=== PATIENT | female | born 1980 | race Caucasian/White ===

== ENCOUNTER 2021-04-28 15:59 | Emergency (ER) | payer OTHER, SELFPAY ==
[2021-04-28 16:03] VITALS: BP 113/71; PULSE 66; RESP 16; TEMP 36.7; O2SAT 100
--- NOTE | 2021-04-28 17:44 | PC.NURSE ---
Patient states she is going to leave. Patient informed she can return to ED if symptoms continue or worsen.
== END 2021-04-28 17:44 | disposition left against medical advice (07) ==
DX: Z53.21 Procedure and treatment not carried out due to patient leaving prior to being seen by health care provider (principal)
CPT/HCPCS: 99199

== ENCOUNTER 2022-04-24 12:33 | Inpatient (IN) | payer OTHER, SELFPAY ==
[2022-04-24] VITALS (28 sets, daily range): BP systolic 66–173; BP diastolic 46–130; PULSE 66–102; RESP 12–20; TEMP 36.6–36.9; O2SAT 100; BMI 30.2
--- NOTE | ~2022-04-24 | US_ITS ---
US OB limited w BPP DATE: 04/24/2022 14:03 INDICATION: Variable heart decelerations in the office. TECHNIQUE: Real-time imaging and Doppler analysis COMPARISON: 12/09/2018 limited obstetrical ultrasound examination FINDINGS: Live lobo intrauterine gestation, fetus in longitudinal lie, vertex presentation. Feta l heart rate of 140 bpm. Anterior placenta. Amniotic fluid index measures 10.1 cm, which is within normal range. BIOPHYSICAL PROFILE reported by production maintenance technician: breathin out of 2 movement: 2 out of 2 tone: 2 out of 2 Amniotic fluid pocket: 2 out of 2 Total score: 8 out of 8 IMPRESSION: Normal biophysical profile score of 8 out of 8 Normal amniotic fluid index of 10.1 cm Reviewed, dictated and finalized at [facility]. Reviewed, dictated and finalized at location [facility].
--- NOTE | 2022-04-24 15:39 | LDADM ---
This patient, Prema Singh, was admitted to Labor/Delivery/Recovery 120 on 04/24/22 at 12:33. Plans for labor, pain management and were discussed with patient. Patient/family oriented to hospital policies and general routines including ID bracelet, bed and alarms, visiting hours, pain management, procedures, bathroom and other care routines, personal items, smoking policy, room service/diet and guest tray routines, security routines, and visiting hours. Patient/Family are encouraged to report perceived risks to care and to ask questions if they do not understand what they are told or what they should do. See OBIX for further documentation.
[2022-04-24] MEDS: LACTATED RINGERS 1,000 ML 125 ML IV CONT ×2 (15:54→17:04)
[2022-04-24 16:05] LABS: Basophils Absolute Auto 0.1 K/mm3 (0.0-0.1); Basophils Percent Auto 0.5 % (0.2-1.2); Eosinophils Absolute Auto 0.2 K/mm3 (0-0.3); Eosinophils Percent Auto 1.4 % (0-4.4); Hematocrit 40.7 % (37.0-47.0); Hemoglobin 13.8 g/dL (12.0-15.0); Immature Granulocyte Percent A 0.8 % (0-0.5); Lymphocytes Absolute Auto 2.71 K/mm3 (0.9-3.2); Mean Corpuscular HGB Conc 33.9 g/dl (32-36); Mean Corpuscular Hemoglobin 32.5 pg (26-34); Mean Platelet Volume 10.3 fl (7.4-10.4); Monocytes Absolute Auto 0.6 K/mm3 (0.1-0.6); Monocytes Percent Auto 4.7 % (2.6-8.5); Neutrophils Absolute Auto 8.7 K/mm3 (1.3-6.7); Neutrophils Percent Auto 70.6 % (45.5-73.1); Platelet Count Result 256 k/mm3 (150-375); Red Blood Count 4.24 M/mm3 (4.2-5.4); Red Cell Distribution Width 13.4 % (11.5-14.5); White Blood Count 12.3 K/mm3 (4.5-10.0)
--- NOTE | 2022-04-24 16:55 | WPDANESEPPF ---
Anes - Initial Pre Proc Eval Procedure: Operation Date: 04/24/22 17:00 Proposed Procedures p Section - Raj Greenberg MD Date/Time: 04/24/22 16:55 Surgeon: aRj Greenberg MD Pre Op Diagnosis: nst Patient Data Age: 42 Gender: F Height: 1.63 m Weight: 80 kg Last Vital Signs Temp 36.9 C 04/24/22 16:32 Pulse 101 H 04/24/22 16:46 BP 126/48 L 04/24/22 16:46 O2 Del Method Room Air 04/24/22 15:35 Allergies Allergy/AdvReac Type Severity Reaction Status Date / Time No Known Allergies Allergy Unknown Unverified 04/24/22 15:51 Home Medications Medication Instructions Recorded Confirmed Type albuterol sulfate 90 mcg/actuation 2 puff inhalation QID PRN Wheezing 04/10/22 04/24/22 History aerosol inhaler aspirin 81 mg tablet 81 mg PO DAILY 04/10/22 04/24/22 History prenat.vits,carlos,ksi-vpdh-hdpjp 1 tablet PO HS 04/10/22 04/24/22 History Laboratory Tests 04/24/22 04/24/22 04/24/22 15:59 15:59 15:59 WBC 12.3 K/mm3 H K/mm3 (4.5-10.0) RBC 4.24 M/mm3 M/mm3 (4.2-5.4) Hgb 13.8 g/dL g/dL (12.0-15.0) Hct 40.7 % % (37.0-47.0) MCV 96.0 fl fl (80-100) MCH 32.5 pg pg (26-34) MCHC 33.9 g/dl g/dl (32-36) RDW 13.4 % % (11.5-14.5) Plt Count 256 k/mm3 k/mm3 (150-375) MPV 10.3 fl fl (7.4-10.4) Immature Gran % (Auto) 0.8 % H % (0-0.5) Neut % (Auto) 70.6 % % (45.5-73.1) Lymph % (Auto) 22.0 % % (18.3-44.2) Gates % (Auto) 4.7 % % (2.6-8.5) Eos % (Auto) 1.4 % % (0-4.4) Baso % (Auto) 0.5 % % (0.2-1.2) Lymph # (Auto) 2.71 K/mm3 K/mm3 (0.9-3.2) Gates # (Auto) 0.6 K/mm3 K/mm3 (0.1-0.6) Eos # (Auto) 0.2 K/mm3 K/mm3 (0-0.3) Baso # (Auto) 0.1 K/mm3 K/mm3 (0.0-0.1) Abs Immat Gran (auto) 0.10 K/mm3 H K/mm3 (0.00-0.031) Absolute Neuts (auto) 8.7 K/mm3 H K/mm3 (1.3-6.7) Absolute Nucleated RBC 0.0 K/mm3 K/mm3 (0.0-0.012) Nucleated RBC % 0.0 % % (0.0-0.2) RPR Pending Blood Type A Positive Antibody Screen Pending Patient hx anesthesia problems: none Family hx anesthesia problems: none Results Review: All pre-operative results and documents have been reviewed as part of the pre-operative evaluation. [facility] Family History Family History Father Family history of malignant neoplasm Mother Family history of chronic obstructive pulmonary disease Hypertension Sibling Diabetes mellitus Family history of diabetes mellitus in first degree relative Hypertension Other Asthma Social History Social History (Updated 04/24/22 @ 15:42 by Joyce Gaitan RN) Smoking status: Former smoker Tobacco type: cigarettes Second hand tobacco smoke exposure: Yes Alcohol intake: former Substance use: never Spiritual care concerns: No Anes - Eval Final PreProcedure Day of Procedure 04/24/22 16:55 Patient weight: obese Heart: regular rate and rhythm Lungs: clear to auscultation and normal air movement Airway: Mallampati scale class II Neurological: alert and oriented Last oral intake: >/= 8 hours ASA classification: III Emergent: no Anesthetic plan: proceed Anesthesia type and monitoring: regional spinal and standard monitoring Results Review: All pre-operative results and documents have been reviewed as part of the pre-operative evaluation. Informed Consent: The patient's anesthetic plan and its attendant risks and benefits were discussed with the patient/family/POA. Questions were solicited and answers provided to the satisfaction of the patient/family/POA.
--- NOTE | 2022-04-24 17:03 | WPDHPUPDATE1 ---
History and Physical Update Update Date/Time: 04/24/22 17:03 History and Physical has been reviewed, including an updated exam of the patient. There are NO changes in the patient's condition. Risks, benefits, and alternatives have been discussed and questions answered. Patient agrees to proceed with procedure.
--- NOTE | 2022-04-24 17:04 | PM.IMHP ---
H&P: [facility] History of Present Illness Date/Time: 04/24/22 17:04 Chief Complaint: Nonreassuring heart tones Narrative: this patient is a 42-year-old multiparous female at 38 weeks gestation with nonreassuring heart tones and a previous delivery. Patient had repetitive depart rate decelerations on monitoring in the office. It is Unsafe to send her home. we agreed perform repeat delivery today. She understands that injuries may occur that result in hospitalization, more surgery, and severe illness. She understands there is risk of hemorrhage infection. she denies any chest pain shortness of breath. She denies any contractions, vaginal bleeding, loss of fluid. Denies any nausea, vomiting, fever, chills. Review of Systems Review of Systems: All systems reviewed & are unremarkable except as noted in HPI and below Constitutional: Constitutional: Denies chills, Denies fatigue, Denies fever(s) and Denies weakness Eyes: Eyes: Denies blurry vision, Denies change in vision, Denies loss of peripheral vision, Denies loss of vision, Denies other visual disturbances and Denies eye pain ENT: Denies vertigo, Denies dizziness, Denies hearing loss, Denies mouth pain, Denies nasal obstruction, Denies neck mass and Denies neck pain Cardiovascular: Cardiovascular: Denies chest pain, Denies diaphoresis, Denies syncope, Denies leg edema and Denies dyspnea Respiratory: Respiratory: Denies chest congestion, Denies cough, Denies hemoptysis, Denies dyspnea and Denies wheezing Gastrointestinal: Gastrointestinal: Denies abdominal pain, Denies constipation, Denies diarrhea, Denies nausea and Denies vomiting Genitourinary: Genitourinary: Denies hematuria, Denies change in libido, Denies nocturia, Denies genital lesions, Denies flank pain and Denies urinary urgency Musculoskeletal: Musculoskeletal: Denies abnormal gait, Denies back pain, Denies myalgias, Denies arthralgias, Denies joint swelling, Denies muscle weakness and Denies neck pain Integumentary/Breasts: Skin/Breast: Denies swelling, Denies breast pain, Denies breast mass, Denies dry skin, Denies nipple discharge, Denies unusual bruising and Denies jaundice Neurologic: Denies Neuro-related abnormal movements, Denies Abnormal speech present, Denies abnormal gait, Denies behavioral changes, Denies confusion, Denies vertigo, Denies dizziness, Denies syncope, Denies loss of vision, Denies memory loss, Denies convulsions and Denies weakness Psychiatric: Psychiatric: Denies abnormal sleep pattern, Denies behavioral changes, Denies change in libido, Denies confusion, Denies depression, Denies anhedonia and Denies memory loss Endocrine: Endocrine: Reports no additional endocrine complaints, Denies change in libido and Denies fatigue Hematologic/Lymphatic: Hematologic/Lymphatic: Reports no additional hematologic/lymphatic complaints Allergic/Immunologic: Allergic/Immunologic: Reports no additional allergic/immunologic complaints and Denies wheezing [facility] Family History Family History Father Family history of malignant neoplasm Mother Family history of chronic obstructive pulmonary disease Hypertension Sibling Diabetes mellitus Family history of diabetes mellitus in first degree relative Hypertension Other Asthma Social History Social History (Updated 04/24/22 @ 15:42 by Joyce Gaitan, RN) Smoking status: Former smoker Tobacco type: cigarettes Second hand tobacco smoke exposure: Yes Alcohol intake: former Substance use: never Spiritual care concerns: No Meds Home Medications and Allergies Home Medications Medication Instructions Recorded Confirmed Type albuterol sulfate 90 mcg/actuation 2 puff inhalation QID PRN Wheezing 04/10/22 04/24/22 History aerosol inhaler aspirin 81 mg tablet 81 mg PO DAILY 04/10/22 04/24/22 History prenat.vits,carlos,lrm-lrin-xbmiy 1 tablet PO HS 04/10/22 04/24/22 Hist
[2022-04-24] MEDS: ceFAZolin 2 GM/D5W 50 ML 2 GM/50 ML BAG IVPB (17:26)
--- NOTE | 2022-04-24 18:30 | P.OP_ITS ---
Procedure Note - Detailed Date of Procedure 04/24/22 Pre-op Diagnosis nonreassuring heart tones, previous Post-op Diagnosis Same Procedure Performed Low-transverse section Surgeon Raj Greenberg MD Anesthesia Spinal Indications nonreassuring heart tones, previous Findings Normal gestational maternal anatomy, average size , normal Apgars. Description of Procedure The patient was taken the operating room. She was prepped and draped in dorsal supine position with a leftward tilt. This was done after spinal anesthetic was applied. A low-transverse skin incision was made and carried down till of the fascia with the knife. The fascial incision was made with the knife. The fascial incision was extended laterally with Park scissors. The fascia was tented upward superiorly and inferiorly the rectus muscles were dissected off bluntly. The rectus muscles were the midline. The preperitoneal fat and peritoneum were dissected open bluntly at the superior aspect of the rectus muscles. The peritoneal incision was extended superior and inferior with good position of bladder. The uterine incision was made with a scalpel down to the level of the amniotic cavity. The amniotic cavity was entered bluntly. The was delivered. The cord was clamped and cut and the was handed off to waiting pediatric staff. Cord bloods were ob tained. The placenta was removed manually. The uterus was exteriorized. The uterus was cleared of all clots, debris and membranes. The uterus was closed in 0 Vicryl running lock fashion. An imbricating over a was placed along the incision line as well. The uterus was returned to the abdomen. The gutters were cleared of all clots and debris. The fascia was closed with 0 Vicryl running fashion. The subcutaneous tissue was irrigated pinpoint bleeders were cauterized. The skin was closed with subcuticular absorbable good. The skin incision line was covered with glue. The patient tolerated the procedure well. She has taken recovery room in stable condition. Sponge lap and needle counts were correct x2. Estimated Blood Loss 500 Pathology Yes Complications No immediate complications Condition Stable Disposition PACU
--- NOTE | 2022-04-24 18:42 | PC.NURSE ---
report given to MATY Anderson.
[2022-04-24] MEDS: OXYTOCIN 30 UNITS/NS 500 ML 30 UNITS/500 ML BAG 125 UNITS IV CONT (19:27)
[2022-04-24] MEDS: ONDANSETRON INJ 4 MG/2 ML VIAL IV PUSH (23:16)
[2022-04-24] MEDS: DEXTROSE 5%/0.45% SOD CHL 1,000 ML 125 ML IV CONT (23:19)
[2022-04-25 04:20] VITALS: BP 108/59; PULSE 68; RESP 18; TEMP 36.5; O2SAT 99
[2022-04-25 05:45] LABS: Basophils Absolute Auto 0.1 K/mm3 (0.0-0.1); Basophils Percent Auto 0.4 % (0.2-1.2); Eosinophils Absolute Auto 0.1 K/mm3 (0-0.3); Eosinophils Percent Auto 0.6 % (0-4.4); Hematocrit 32.6 % (37.0-47.0); Hemoglobin 11.1 g/dL (12.0-15.0); Immature Granulocyte Absolute 0.11 K/mm3 (0.00-0.031); Immature Granulocyte Percent A 0.8 % (0-0.5); Lymphocytes Absolute Auto 2.04 K/mm3 (0.9-3.2); Lymphocytes Percent Auto 14.6 % (18.3-44.2); Mean Corpuscular Hemoglobin 32.6 pg (26-34); Mean Corpuscular Volume 95.9 fl (80-100); Mean Platelet Volume 10.1 fl (7.4-10.4); Monocytes Absolute Auto 0.8 K/mm3 (0.1-0.6); Neutrophils Absolute Auto 10.8 K/mm3 (1.3-6.7); Neutrophils Percent Auto 77.6 % (45.5-73.1); Platelet Count Result 250 k/mm3 (150-375); Red Cell Distribution Width 13.2 % (11.5-14.5); White Blood Count 13.9 K/mm3 (4.5-10.0)
[2022-04-25] MEDS: IBUPROFEN 600 MG TABLET PO ×3 (06:14→23:41)
[2022-04-25 06:24] LABS: Rapid Plasma Reagin Non-Reactive (NonReactive)
[2022-04-25 07:40] VITALS: BP 108/47; PULSE 63; RESP 16; TEMP 36.7; O2SAT 100
--- NOTE | 2022-04-25 08:27 | PM.OBPNVD ---
OB - PN: Subj Subjective Date/time seen: 04/25/22 08:27 Patient comments: no complaints, pain well controlled, tolerating diet and flatus present OB - PN: Obj Data Labs CBC & Chem 7: 04/25/22 04:04 Labs: Laboratory Results - last 24 hr 04/24/22 04/24/22 04/24/22 15:59 15:59 15:59 WBC 12.3 H RBC 4.24 Hgb 13.8 Hct 40.7 MCV 96.0 MCH 32.5 MCHC 33.9 RDW 13.4 Plt Count 256 MPV 10.3 Immature Gran % (Auto) 0.8 H Neut % (Auto) 70.6 Lymph % (Auto) 22.0 [place] % (Auto) 4.7 Eos % (Auto) 1.4 Baso % (Auto) 0.5 Lymph # (Auto) 2.71 [place] # (Auto) 0.6 Eos # (Auto) 0.2 Baso # (Auto) 0.1 Abs Immat Gran (auto) 0.10 H Absolute Neuts (auto) 8.7 H Absolute Nucleated RBC 0.0 Nucleated RBC % 0.0 RPR Non-reactive Blood Type A Positive Antibody Screen Negative 04/25/22 04:04 WBC 13.9 H RBC 3.40 L Hgb 11.1 L Hct 32.6 L MCV 95.9 MCH 32.6 MCHC 34.0 RDW 13.2 Plt Count 250 MPV 10.1 Immature Gran % (Auto) 0.8 H Neut % (Auto) 77.6 H Lymph % (Auto) 14.6 L [place] % (Auto) 6.0 Eos % (Auto) 0.6 Baso % (Auto) 0.4 Lymph # (Auto) 2.04 [place] # (Auto) 0.8 H Eos # (Auto) 0.1 Baso # (Auto) 0.1 Abs Immat Gran (auto) 0.11 H Absolute Neuts (auto) 10.8 H Absolute Nucleated RBC 0.0 Nucleated RBC % 0.0 RPR Blood Type Antibody Screen Imaging Radiologist's impression: Impressions Obstetrics US/Biophysical Profile 04/24/22 14:04 IMPRESSION: Normal biophysical profile score of 8 out of 8 Normal amniotic fluid index of 10.1 cm OB - PN A/P Plan day: 1 Comments: Post Op LTCS - no problems, routine recovery Time Spent With Patient Time: Total time spent is greater than 50% in coordination of care (as documented) at patient's floor/unit and/or counseling patient: Exam Const: General: cooperative, healthy appearing, comfortable and no acute distress Resp: Auscultation: no crackles, no rales, no rhonchi and no wheezes Cardio: Rhythm: regular rhythm Heart sounds: no click and no murmurs GI: Inspection: non-distended Auscultation: normal bowel sounds Extrem: General: normal to inspection, no pedal edema and no calf tenderness
[2022-04-25] MEDS: MULTIVIT/MIN/PREN/FOL AC/IRON TABLET 1 TAB PO (09:49)
[2022-04-25] MEDS: DOCUSATE SODIUM 100 MG CAPSULE PO ×2 (09:49→17:11)
--- NOTE | 2022-04-25 11:37 | WPDANLDPN2 ---
Anes-Prog Note L&D Date/Time: 04/25/22 11:37 Comfortable throughout: section Neuraxial method: spinal Epidural/Spinal procedure site: clean & non-tender Neuro status: Neuro function grossly intact. Cardiovascular status: normal Respiratory status: normal Airway patency: baseline Mental status: baseline Post-Op hydration status: normal Vital Signs: Last Vital Signs Temp 36.7 C 04/25/22 07:40 Pulse 63 04/25/22 07:40 Resp 16 04/25/22 07:40 BP 108/47 L 04/25/22 07:40 Pulse Ox 100 04/25/22 07:40 O2 Del Method Room Air 04/25/22 04:20 Pain score (VAS): 3 I/O: Intake & Output 04/24/22 04/25/22 04/25/22 23:59 07:59 15:59 Intake Total 1000 700 Output Total 1150 Balance 1000 -450 Post-procedural complaints: none Patient feedback: Patient satisfied with anesthetic care.
--- NOTE | 2022-04-25 11:38 | WPDANLDNPN2 ---
Anes-Prog Note L&D-Neuraxial Date/Time: 04/25/22 11:38 Neuraxial medications: intrathecal PF morphine Opiod-related complaints: pruritis mild, no treatment Patient feedback: Patient satisfied with post-operative pain management. Comments: Patient stated mild nausea last night, but was effectively treated with medication
[2022-04-25 12:10] VITALS: BP 105/47; PULSE 67; RESP 16; TEMP 36.6; O2SAT 99
--- NOTE | 2022-04-25 12:40 | PC.NURSE ---
[id number] Introductions were made, then consulted with patient to assess needs related to . Mother led the conversation with her?plans to feed?her infant and the?experience so far. Resources provided for inpatient and outpatient services using a resource guide and mom/baby guide. (Infant is in the nursery) Mother voiced understanding of information and will call if there is a request for assistance. Reported to primary RN.
[2022-04-25] MEDS: HYDROcodone/acetaminophen (*CRX) 5-325 MG TABLET 1 TAB PO ×2 (17:11→23:41)
[2022-04-25 17:14] VITALS: BP 96/43; PULSE 70; RESP 18; TEMP 36.4; O2SAT 100
[2022-04-25] MEDS: SIMETHICONE 80 MG TAB.CHEW PO ×2 (17:20→23:41)
[2022-04-25 20:00] VITALS: BP 98/55; PULSE 70; RESP 18; TEMP 36.6; O2SAT 99
[2022-04-26] MEDS: HYDROcodone/acetaminophen (*CRX) 5-325 MG TABLET 1 TAB PO ×3 (04:59→15:25)
[2022-04-26] MEDS: SIMETHICONE 80 MG TAB.CHEW PO ×2 (04:59→09:02)
--- NOTE | 2022-04-26 08:30 | PM.OBPNVD ---
OB - PN: Subj Subjective Date/time seen: 04/26/22 08:30 Patient comments: no complaints, pain well controlled, incisional pain, tolerating diet and flatus present OB - PN: Obj Data Labs CBC & Chem 7: 04/25/22 04:04 OB - PN A/P Plan day: 2 Plan: routine care Comments: POD#2 LTCS - no problems, Time Spent With Patient Time: Total time spent is greater than 50% in coordination of care (as documented) at patient's floor/unit and/or counseling patient: Exam Const: General: comfortable, no acute distress and alert Resp: Effort & Inspection: normal respiratory effort Auscultation: no crackles, no rales and no rhonchi Cardio: Rate: regular rate Heart sounds: no click, no murmurs and no rubs GI: Inspection: non-distended GI Palp: No Tenderness to palpation present (GI) Auscultation: normal bowel sounds Other: Incision - CDI Extrem: General: normal to inspection, no pedal edema and no calf tenderness
--- NOTE | 2022-04-26 08:30 | PM.OBDSVD ---
DS: Admitting Diagnosis Discharge Date 04/26/22 Admitting Diagnosis term pregnacy OB - DS: Summary OB Procedures : None OB Procedures Intrapartum: OB Procedures: : None Peripartum Data Procedures: Procedures Operation Date: 04/24/22 17:00 Actual Procedure Side Surgeon p Section Raj Greenberg MD Time Spent with Patient Time attestation: Total time spent providing and/or coordinating discharge services: DS: Data Data Completed and Pending Pending studies at discharge: Pending at discharge 04/24/22 18:06 Surgical [PTH] Routine Discharge Plan Discharge Discharging Clinician: Raj Greenberg Patient Disposition: Home, Self-Care Activity: pelvic rest Diet: regular Patient Instructions: Antibiotic Form Stand Alone Forms: General Discharge Information Follow-up/Referrals: Raj Greenberg MD [Physician] - Discharge Medications: New hydrocodone-acetaminophen 5-325 mg tablet 1 tablet PO Q4H PRN (Reason: pain) Qty: 25 0RF Continued Adult Low Dose Aspirin 81 mg Tablet 81 mg PO DAILY #2 Tablet 1 tablet PO HS albuterol sulfate 90 mcg/actuation Hfa Aerosol Inhaler 2 puff INHALATION QID PRN (Reason: Wheezing) Date of admission: 04/24/22 12:33 Primary Care Provider: PHYSICIAN NOT ON STAFF,NONSTAFF Admitting Provider: Raj Greenberg Attending physician on admission: Raj Greenberg Condition: Stable
[2022-04-26] MEDS: IBUPROFEN 600 MG TABLET PO ×2 (08:54→15:24)
[2022-04-26] MEDS: TETANUS,DIPHTHERIA,AC PERTUSSIS ADULT (0.5 ML) BOOSTRIX IM (09:01)
[2022-04-26] MEDS: MULTIVIT/MIN/PREN/FOL AC/IRON TABLET 1 TAB PO (09:02)
[2022-04-26] MEDS: DOCUSATE SODIUM 100 MG CAPSULE PO (09:02)
[2022-04-26 09:25] VITALS: BP 107/49; PULSE 72; RESP 16; TEMP 36.1; O2SAT 99
[2022-04-28 09:21] VITALS: BP 118/56; PULSE 70; RESP 20; TEMP 36.8; O2SAT 99
== END 2022-04-26 15:55 | disposition home or self-care (01) | DRG 785 ==
LOC: ANHOBOP 15:11 → ANHLDR 15:12 → ANHOB2 21:13
PROVIDERS: Admitting Provider Obstetrics & Gynecology; Visit Provider Obstetrics & Gynecology
PROC: 10D00Z1 Extraction of Products of Conception, Low, Open Approach (ICD-10-PCS; CPT 59514; principal; 2022-04-24 17:00)
DX: O34.219 Maternal care for unspecified type scar from previous cesarean delivery (principal); O76 Abnormality in fetal heart rate and rhythm complicating labor and delivery; Z3A.38 38 weeks gestation of pregnancy; Z37.0 Single live birth; Z30.2 Encounter for sterilization; Z79.82 Long term (current) use of aspirin; Z87.891 Personal history of nicotine dependence; Z23 Encounter for immunization
CPT/HCPCS: 36415; 76815; 76819; 85025; 86592; 86850; 86900; 86901; 88302; 90471; 90686; 90715; A9270; G0008; J0131; J0690; J2274; J2405; J2590; J7120

== ENCOUNTER 2024-11-29 08:40 | Outpatient (CLI) | payer SELFPAY ==
--- NOTE | ~2024-11-29 | MM_ITS ---
EXAMINATION: MM screening nate BI w juno HISTORY: Screening mammogram TECHNIQUE: Craniocaudal and mediolateral oblique 3-D tomosynthesis images were obtained and synthetic 2-D images were generated. CAD analysis was submitted and interpreted. COMPARISON: No prior mammogram is available for comparison at this institution. BREAST PARENCHYMAL COMPOSITION:Dense: The breasts are heterogeneously dense, which may obscure small masses. FINDINGS: No suspicious mass, calcification, or architectural distortion are identified in either john ast to suggest malignancy. There has been no suspicious interval change. IMPRESSION: No mammographic evidence of malignancy. Recommend routine screening mammography in one year. BI-RADS Category 1: Negative Reviewed, dictated and finalized at location .
--- OUTSIDE RECORDS SUMMARY | 2024-11-29 09:03 | XMS_ITS | Clinical Summary ---
Author Organization [facility] [employer] Address [address] [place] [address] Care Team Providers Care Sanitation Inspector Name Role Phone Unavailable Primary Care Provider Unavailabl e Source Comments [facility] [employer],non-owned Affiliates and Associated Physician Practices is amultiple site organization consisting of ambulatory clinics and hospital sitesin [place], [place], [place] and [place]. This disclosure is being madepursuant to the Care Everywhere program and may not contain all information available regarding this patient. Last updated 18.[employer] [facility] Allergies No known active allergies Medications * Be aware that medications may not be up to date on this document. Alwaysverify current medications with the patient. ClonazePAM (KLONOPIN PO) Active albuterol HFA (PROVENTIL;VENTOL IN;PROAIR) 108 (90 BASE) MCG/ACT inhalerIndication s:Mild intermittent asthma without complication (HCC) Inhale 2 puffs by mouth every 4 hours as needed 1 Inhaler 07/29/2018 Active Vit-Fe Fumarate-FA ( VITAMIN) 27-0.8 MG tablet Take 1 tablet by mouth once daily Active Family History Medical History Relation Name Comments Diabetes - Type 2 Brother Cancer - Other Father throat COPD - Chronic Obstructive Pulmonary Disease Mother Diabetes - Type 1 Paternal Grandmother Asthma Neg Hx Autoimmune Disease Neg Hx Bipolar Disorder Neg Hx Cancer - Breast Neg Hx Cancer - Colon Neg Hx Cancer - Ovarian Neg Hx Cancer - Pancreatic Neg Hx Cancer - Prostate Neg Hx Depression Neg Hx Eczema Neg Hx Hypertension Neg Hx Migraine Neg Hx Osteoporosis Neg Hx Seizures Neg Hx Sudd. <30 Neg Hx Thyroid Disease Neg Hx Ulcerative Colitis Neg Hx Relation Name Status Comments Brother Alive Father Alive Mother Alive Paternal Grandmother Social History Tobacco Use Types Packs/Day Years Used Date Smoking Tobacco: Former Cigarettes 1 24 1 08/05/1993 - 06/05/2018 Smokeless Tobacco: Never Tobacco Cessation:Counseling Given: No Alcohol Use Standard Drinks/Week Comments No 0 (1 standard drink = 0.6 oz pur e alcohol) Estimated Date of Delivery Comme nts Yes 06/05/2019 Sex and Gender Information Value Date Recorded Sex Assigned at Not on file Legal Sex Female 9:57 AM [employer] Gender Identity Not on file Sexual Orientation Not on file Last Filed Vital Signs Vital Sign Reading Time Taken Comments Blood Pressure 124/80 10/12/2018 12:10 PM CDT Pulse 64 10/12/2018 12:10 PM CDT Temperature 37 C (98.6 F) 10/12/2018 12:10 PM CDT Respiratory Rate 16 10/12/2018 12:10 PM CDT Oxygen Saturation 98% 10/12/2018 12:10 PM CDT Inhaled Oxygen Concentration - - Weight 68 kg (150 lb) 10/12/2018 12:10 PM CDT Height 162.6 cm (5' 4 ) 10/12/2018 12:10 PM CDT Body Mass Index 25.75 10/12/2018 12:10 PM CDT Plan of Treatment Health Maintenance Due Date Last Done Comments COLOGUARD (AGES 45-75) - COL ON CA SCREENING 1979 COLON MONITORING 1979 COLONOSCOPY - COLON CA SCREENING 1979 CT COLONOGRAPHY - COLON CA SCREENING 1979 Colorectal Cancer Screening 1979 FIT - COLON CA SCREENING 1979 FLEX SIG - COLON CA SCREENING 1979 LIPID TESTING 1979 MAMMOGRAM 1979 HIV SCREENING 1994 HEPATITIS C SCREENING 04/05/1997 DTAP/TDAP/TD VACCINES (1 - Tdap) 1998 HEPATITIS B VACCINE (1 of 3 - 19+ 3-dose series) 1998 COVID-19 VACCINE ( - 2023-2 5 season) 2024 DEPRESSION SCREENING 08/03/2024 INFLUENZA VACCINE (Season Ended) 2025 ZOSTER VACCINE (1 of 2) 2029 Respiratory Syncytial Virus (RSV) Vaccine Pt: or over 60 yrs (1 - 1-dose 75+ series) 2054 HIB VACCINE Aged Out No longer eligi ble based on patient's age to complete this topic HPV VACCINE Aged Out No longer eligi ble based on patient's age to complete this topic MENINGOCOCCAL (Group B) VACC INE SHARED DECISION-MAKING Aged Out No longer eligibl e based on patient's age to complete this topic MENINGOCOCCAL GROUPS A/C/Y/W VACCINE Aged Out No longer eligible b ased on patient's age to complete this topic PNEUMOCOCCAL VACCINE Aged Out No long er eligible based on patient's age to complete this topic Insurance
--- OUTSIDE RECORDS SUMMARY | 2024-11-29 09:04 | XMS_ITS | Clinical Summary ---
Author Organization [facility] Address [facility] [place] [address] Care Team Providers Care Tower Supervisor Name Role Phone Unavailable Primary Care Provider Unavailabl e Allergies No known active allergies Medications montelukast (SINGULAIR) 10 MG tabletIndicatio ns:Allergic sinusitis Take 1 tablet (10 mg total) by mouth nightly at bedtime. 30 tablet 2 4 Active busPIRone (BUSPAR) 10 MG tabletIndicatio ns:Generalized anxiety disorder,Premen strual dysphoric disorder Take 1 tablet (10 mg total) by mouth 2 (two) times daily. Take 1/2 tablet twice daily initially 1 week prior to menses and during menses 60 tablet 1 4 Active escitalopram (LEXAPRO) 20 MG tabletIndicatio ns:Generalized anxiety disorder Take 1 tablet (20 mg total) by mouth daily. 90 tablet 1 4 Active buPROPion XL (WELLBUTRIN XL) 150 MG 24 hr tabletIndicatio ns:Mood changes Take 1 tablet (150 mg total) by mouth daily. 30 tablet 4 Active hydrOXYzine (ATARAX) 25 MG tabletIndicatio ns:Anxiety with flying Take 1 tablet every 8 hours PRN anxiety. 20 tablet 5 Active Active Problems Problem Noted Date Diagnosed Date Palpitations 08/24/2023 Assessment & Plan (08/24/2023 8:30 AM ORTHOTIC FINISH GRINDING TECHNICIAN): EKG shows no significant arrhythmias. Holter monitor does not show any significant arrhythmias. Would not start any pharmacologic therapy at this time. Raynaud's disease without gangrene 08/24/2023 Assessment & Plan (08/24/2023 8:31 AM ORTHOTIC FINISH GRINDING TECHNICIAN): She was started on verapamil by her primary care physician. I told her that she could try this or try conservative therapies such as gloves or right hand warm a to help with warming her hands and colder weather. History of tobacco abuse 08/24/2023 Assessment & Plan (08/24/2023 8:32 AM ORTHOTIC FINISH GRINDING TECHNICIAN): She is a former smoker. I discussed coronary calcium scoring for risk stratification. 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 Family & Internal Medicine [id number] [place] [address] Cam Pate MD Appointment Request 09/09/2024 MDCapsule Message [facility] Internal Medicine [address] [id number] Mylene Dumont PA-C Vacation/flying anxiety from Last 3 Months Immunizations Immunization Administration Dates Next Due Fluzone 6 Months+ Quad (0.5 mL Prefilled Syringe) 06/10/2023 Influenza (Generic) 05/03/2017 Influenza Adult (Generic) 04/26/2022,,05/15/2020,2018,04/26/2018,04/06/2017 Tdap (Generic) 04/26/2022,04/27/2019 Family History Medical History Relation Comments Diabetes Brother type 1; dx 20s Cancer Father skin Diverticulitis Father Stroke Father Throat cancer Father Cancer Mother cervical Prostate Cancer Paternal Grandfather type 1 diabetes Paternal Grandmother Diabetes Sister type 2; dx om 42 s Relation Status Comments Brother Father Alive Mother Alive Paternal Grandfather Paternal Grandmother Sister Social History Tobacco Use Types Packs/Day Years Used Date Smoking Tobacco: Former Cigarettes 1 20 1 2017 Smokeless Tobacco: Never Tobacco Cessation:Counseling Given: No Alcohol Use Standard Drinks/Week Comments Yes 16.7 (1 standard drink = 0.6 oz pure alcohol) PHQ-2 Answer Date Recorded Patient Health Questionnaire-2 Score 0 03/28/2024 Comments No Sex and Gender Information Value Date Recorded Sex Assigned at Not on file Legal Sex Female 6:32 PM CDT Gender Identity Not on file Sexual Orientation Not on file Last Filed Vital Signs Vital Sign Reading Time Taken Comments Blood Pressure 117/67 03/28/2024 9:44 AM CDT Pulse 60 03/28/2024 9:44 AM CDT Temperature 36.4 C (97.6 F) 03/28/2024 9:44 AM CDT Respiratory Rate 18 03/28/2024 9:44 AM CDT Oxygen Saturation 100% 03/28/2024 9:44 AM CDT Inhaled Oxygen Concentration - - Weight 71.7 kg (158 lb 1.6 oz) 03/28/2024 9:44 A M CDT Height 162.6 cm (5' 4 ) 03/28/2024 9:44 AM CDT Body Mass Index 27.14 03/28/2024 9:44 AM CDT Plan of Treatment Health Maintenance Due Date Last Done Comments Colorectal Cancer Screening Colonoscopy (10 Years) 1979 Hepatitis B Vaccines (1 of 3 - 19+ 3-dose series) 1998 Pneumococcal Vaccine: Pediatrics (0 to 5 Years) and At-Risk Patients (6 to 49 Years) (1 of 2 - PCV) 1998 Cervical Cancer Screening Pa p with HPV Testing (Age 30 to 64) Every 5 Years 2009 Mammogram Screening 2019 Annual Physical 10/11/2023 10/10/2022 COVID-19 Vaccine (3 - 2023-2 5 season) 2024 01/09/2021, 12/19/2020 PHQ-2 (Physician [place]) 08/03/2024 03/28/2024 Cervical Cancer Screening Pa p Smear (Age 30 to 64) Every 3 Years 06/02/2026 06/02/2023 Cervical Cancer Screening wi th HPV 06/02/2026 DTaP, Tdap and Td Vaccines ( 3 - Td or Tdap) 04/26/2032 04/26/2022, 04/27/2019 Hepatitis C Completed 10/02/2021 HPV Vaccines Aged Out No longer eligi ble based on patient's age to complete this topic Meningococcal B Vaccine Aged Out No l onger eligible based on patient's age to complete this topic Meningococcal Vaccine Aged Out No carol[place] myke eligible based on patient's age to complete this topic RSV Immunizations Under 20 Months Aged Out No longer eligible b ased on patient's age to complete this topic Insurance [facility]
--- OUTSIDE RECORDS SUMMARY | 2024-11-29 09:04 | XMS_ITS | Data Portability ---
Author Organization [facility] [place] Address [address] [place] [address] Care Team Providers Care Audiovisual Technician Name Role Phone FELICE LANA Primary Care Provider [phone] Assessment Encounter Date Assessment Date Assessment LastModified by Organization Details LastModified Time 09/24/2022 09/24/2022 increase to 20 mg, if any suicidal thoughts to ED [email or web address] Not available 09/24/2022 11:36:08 06/02/2023 06/02/2023 Annual gynecological exam performed. Patient will come back in a year unless there are new symptoms. Not available 06/02/2023 09:29:41 06/17/2024 06/17/2024 Annual gynecological exam performed. Patient will come back in a year unless there are new symptoms. [email or web address] Not available 06/17/2024 11:20:20 Plan of Treatment Reminders Order Date Submit Date Provider Last Modified By Organization Details Last Modified Time Details Appointments None recorded. Lab CBC w/ auto diff 2021 [facility] (Lab), [address] [place], [address], 16:17:51 CMP, serum or plasma 2021 [facility] (Lab), [address] [place], [address], 16:17:51 TSH, serum or plasma 2021 022 [facility] (Lab), [address] , [place], [address], 17:21:33 vitamin D, 25-hydroxy, total, serum 2021 [facility] (Lab), [address], [place], [address], 16:17:56 dhea-sulfat e, serum 2021 [facility] (Lab), [address], [place], [address], 16:17:52 estradiol, serum 2021 [facility] (Lab), [address], [place], [address], 16:17:54 FSH (follicle-s timulating hormone), serum 2021 [facility] (Lab), [address], [place], [address], 16:17:56 HbA1c (hemoglobin A1c), blood 2021 [facility] (Lab), [address] , [place], [address], 16:17:53 lh (luteinizin g hormone), serum 2021 [facility] (Lab), [address] , [place], [address], 16:17:55 progesteron e, serum 2021 [facility] (Lab), [address], [place], [address], 16:17:54 prolactin, serum 2021 [facility] (Lab), [address] [facility], [place], [address], 16:17:55 shbg (sex hormone-bin ding globulin), serum 2021 [facility] (Lab), [address] [facility], [place], [address], 16:17:53 TSH, serum or plasma 2021 [facility] (Lab), [address] [facility], [place], [address], 16:17:52 testosteron e free/testos terone total, ratio, serum 2021 [facility] (Lab), [address] [facility], [place], [address], 16:17:57 Referral None recorded. Procedures None recorded. Surgeries None recorded. Imaging MAMMO, screening, digital, bilateral 2023 024 [facility], [address], [place], [address], 4 04:09:35 MAMMO, screening, digital, bilateral 2022 023 [facility], [address], [place], [address], 4 05:00:57 Medication Orders Lexapro 20 mg tablet 2022 023 [id number], [address] [facility], [place], [place], [id number], 3 09:35:38 Patient TargetsNo targets recorded. Patient InstructionsNo instructions recorded. Reason for Referral None Reported. Results Created Date Observation Date Name Description Value Unit Range Abnormal Flag Note LastModifiedBy Organization Detail LastModifiedTime 04/15/20 22 04/15/2022 CULTU RE: GROUP B STREP SCREE N, REFLE X SUSCE PTIBI LITY result report SEE RESULT S BELOW Test: Cultu re: Group B Strep , Refle x Susce ptibi lity ([facility]/ [facility] ) Speci men Sourc e: Vagin a/Rec arley Speci men Type: Vagin al/Re ctal Speci men Date: 2021 1:27 PM Resul t Date: 2021 12:29 PM Resul t Statu s: Final resul t Abnor mal: No Resul ting Lab: [facility] [address] [facility] [address] Tel: CULTU RE ----- ----- ----- --- No Group B strep isola shailesh at 2 days (nain ctive broth enhan cemen t) Not Available [facility] [address] [place] [address], , 04/18/2022 13:31:59 05/22/20 22 05/22/2022 CBC W/DIF F WBC 6.3 10'3/ uL 3.6-10 .2 Not Available [facility] [address] [place] [address], , 05/28/2022 16:17:51 05/22/20 22 05/22/2022 CBC W/DIF F RBC 4.27 10'6/ uL (based on docume nted legal sex) 4.10-5 .30 Not Available [facility] [address] [place] [address], [address], 05/28/2022 16:17:51 05/22/20 22 05/22/2022 CBC W/DIF F HGB 13.4 g/dL (based on docume nted legal sex) 11.9-1 5.8 Not Available [facility] [address] [place] [address], [address], 05/28/2022 16:17:51 05/22/20 22 05/22/2022 CBC W/DIF F HCT 40.4 % (based on docume nted legal sex) 37.4-4 8.3 Not Available [facility] [address], [place], [address], 05/28/2022 16:17:51 05/22/20 22 05/22/2022 CBC W/DIF F MCV 94.6 fL 82.0-9 9.0 Not Available [facility] [address] [place], [place] [address], [place], [address], 05/28/2022 16:17:51 05/22/20 22 05/22/2022 CBC W/DIF F MCH 31.4 pg 27.0-3 3.0 Not Available [facility] [address] [place], [place] [address], [place], [address], 05/28/2022 16:17:51 05/22/20 22 05/22/2022 CBC W/DIF F MCHC 33.2 g/dL 32.0-3 6.0 Not Available [facility] [address] [place], [place] [address], [place], [address], 05/28/2022 16:17:51 05/22/20 22 05/22/2022 CBC W/DIF F RDW 11.9 % 11.0-1 5.0 Not Available [facility] [place], [address], 05/28/2022 16:17:51 05/22/20 22 05/22/2022 CBC W/DIF F plt 313 10'3/ uL 150-45 0 Not Available [facility] [address] [place], [place] [address], [place], [address], 05/28/2022 16:17:51 05/22/20 22 05/22/2022 CBC W/DIF F MPV 9.8 fL 9.8-12 .7 Not Available [facility] [place], [address], 05/28/2022 16:17:51 05/22/20 22 05/22/2022 CBC W/DIF F NRBC's 0.0 % 0 Not Available [facility] [address] [place] [place] [address] [place], [address], 05/28/2022 16:17:51 05/22/20 22 05/22/2022 CBC W/DIF F absolute NRBCs 0.0 10/ 0 Not Available [facility] [address] [place], [place] [address], [place], [address], 05/28/2022 16:17:51 05/22/20 22 05/22/2022 CBC W/DIF F neutrophils 50.0 % 37.0-7 2.0 Not Available [facility] [address] [place], [place] [address], [place], [address], 05/28/2022 16:17:51 05/22/20 22 05/22/2022 CBC W/DIF F lymphocytes 39.9 % 16.0-4 8.0 Not Available [facility] [address] [place], [place] [address], [place], [address], 05/28/2022 16:17:51 05/22/20 22 05/22/2022 CBC W/DIF F monocytes 6.0 % 4.0-14 .0 Not Available [facility] [address] [place], [place] [address], [place], [address], 05/28/2022 16:17:51 05/22/20 22 05/22/2022 CBC W/DIF F eosinophils 3.3 % 0.0-9. 0 Not Available [facility] [address] [place], [place] [address], [place], [address], 05/28/2022 16:17:51 05/22/20 22 05/22/2022 CBC W/DIF F basophils 0.6 % 0.0-2. 0 Not Available [facility] [address] [place] [address], [address], 05/28/2022 16:17:51 05/22/20 22 05/22/2022 CBC W/DIF F immature granulocytes 0.2 % no define d refere nce range Not Available [facility] [address] [place], [place] [address], [place], [address], 05/28/2022 16:17:51 05/22/20 22 05/22/2022 CBC W/DIF F absolute neutrophils 3.2 10'3/ uL 1.1-6. 0 Not Available [facility] [address] [place], [place] [address], [place], [address], 05/28/2022 16:17:51 05/22/20 22 05/22/2022 CBC W/DIF F absolute lymphocytes 2.5 10'3/ uL 0.7-3. 4 Not Available [facility] [address] [place] [address], [address], 05/28/2022 16:17:51 05/22/20 22 05/22/2022 CBC W/DIF F absolute monocytes 0.4 10'3/ uL 0.3-1. 0 Not Available [facility] [address] [place] [address], [address], 05/28/2022 16:17:51 05/22/20 22 05/22/2022 CBC W/DIF F absolute eosinophils 0.2 10'3/ uL 0.0-0. 6 Not Available [facility] [address] [place], [place] [address], [place], [address], 05/28/2022 16:17:51 05/22/20 22 05/22/2022 CBC W/DIF F absolute basophils 0.0 10'3/ uL 0.0-0. 1 Not Available [facility] [place] [place], , 05/28/2022 16:17:51 05/22/20 22 05/22/2022 CBC W/DIF F absolute immature granulocytes 0.0 10'3/ uL 0.00-0 .10 05/23 2:08 AM: P indic ates parti al resul ts on a panel have been relea sed. Addit ional resul ts will hortensia w. 05/23 2:08 AM: This resul t has been final verif ied. No addit ional or arthur ed resul ts are expec shailesh. Not Available [facility] [place], , 05/28/2022 16:17:51 05/22/20 22 05/22/2022 CMP(C OMPRE HENSI VE METAB OLIC PANEL ) sodium 139 mmol/ L 133-14 6 Not Available [facility] [address] [place], [place] [address], , 05/28/2022 16:17:51 05/22/20 22 05/22/2022 CMP(C OMPRE HENSI VE METAB OLIC PANEL ) potassium 4.3 mmol/ L 3.5-5. 1 Not Available [facility] [address] [place], [place] [address], [place], [address], 05/28/2022 16:17:51 05/22/20 22 05/22/2022 CMP(C OMPRE HENSI VE METAB OLIC PANEL ) chloride 103 mmol/ L 98-107 Not Available [facility] [address] [place], [place] [address], [place], [address], 05/28/2022 16:17:51 05/22/20 22 05/22/2022 CMP(C OMPRE HENSI VE METAB OLIC PANEL ) carbon dioxide 28 mmol/ L 21-31 Not Available [facility] [place], [address], 05/28/2022 16:17:51 05/22/20 22 05/22/2022 CMP(C OMPRE HENSI VE METAB OLIC PANEL ) anion gap 8 mmol/ L 4-13 Not Available [facility] [address] [place], [place] [address], [place], [address], 05/28/2022 16:17:51 05/22/20 22 05/22/2022 CMP(C OMPRE HENSI VE METAB OLIC PANEL ) blood urea nitrogen 13 mg/dL 7-25 Not Available [facility] [address] [place], [place] [address], [place], [address], 05/28/2022 16:17:51 05/22/20 22 05/22/2022 CMP(C OMPRE HENSI VE METAB OLIC PANEL ) creatinine 0.79 mg/dL 0.60-1 .30 Not Available [facility] [address] [place], [place] [address], [place], [address], 05/28/2022 16:17:51 05/22/20 22 05/22/2022 CMP(C OMPRE HENSI VE METAB OLIC PANEL ) egfrcr (CKD-epi 2020) >90 mL/mi n/1.7 3_m2 >=60 Not Available [facility] [address] [place], [place] [address], [place], [address], 05/28/2022 16:17:51 05/22/20 22 05/22/2022 CMP(C OMPRE HENSI VE METAB OLIC PANEL ) calcium 9.5 mg/dL 8.3-10 .5 Not Available [facility] [address] [place], [place] [address], [place], [address], 05/28/2022 16:17:51 05/22/20 22 05/22/2022 CMP(C OMPRE HENSI VE METAB OLIC PANEL ) glucose 68 mg/dL 70-100 low Not Available [facility] [address] [place], [place] [address], [place], [address], 05/28/2022 16:17:51 05/22/20 22 05/22/2022 CMP(C OMPRE HENSI VE METAB OLIC PANEL ) protein, total 6.8 g/dL 6.4-8. 3 Not Available [facility] [address] [place], [place] [address], [place], [address], 05/28/2022 16:17:51 05/22/20 22 05/22/2022 CMP(C OMPRE HENSI VE METAB OLIC PANEL ) albumin 4.2 g/dL 3.5-5. 0 Not Available [facility] [address] [place], [place] [address], [place], [address], 05/28/2022 16:17:51 05/22/20 22 05/22/2022 CMP(C OMPRE HENSI VE METAB OLIC PANEL ) ALT 50 units /L 9-43 high Not Available [facility] [address] [place], [place] [address], [place], [address], 05/28/2022 16:17:51 05/22/20 22 05/22/2022 CMP(C OMPRE HENSI VE METAB OLIC PANEL ) alkaline phosphatase 71 units /L 34-104 Not Available [facility] [address] [place], [place] [address], [place], [address], 05/28/2022 16:17:51 05/22/20 22 05/22/2022 CMP(C OMPRE HENSI VE METAB OLIC PANEL ) AST 30 units /L 13-39 Not Available [facility] [address] [place], [address], 05/28/2022 16:17:51 05/22/20 22 05/22/2022 CMP(C OMPRE HENSI VE METAB OLIC PANEL ) bilirubin, total 0.9 mg/dL 0.2-1. 2 Not Available [facility] [address] [place], [address], 05/28/2022 16:17:51 05/22/20 22 05/22/2022 DHEA SULFA TE DHEA-sulfate 62 ug/dL Femal e Range s Age(y ) Range (ug/d L) 10-15 34-28 0 15-20 65-36 8 20-25 148-4 07 25-35 99-34 0 35-45 61-33 7 45-55 35-25 6 55-65 19-20 5 65-75 9-246 > 75 12-15 4 Not Available [facility] [address] [place], [address], 05/28/2022 16:17:52 05/22/20 22 05/22/2022 TSH, REFLE X FREE T4 TSH 1.53 uIU/m L 0.30-5 .33 Not Available [facility] [address] [place], [address], 05/28/2022 16:17:52 05/22/20 22 05/22/2022 HUMAN SEX HORMO NE ISABELA NG GLOBU NATHALIE sex hormone binding globulin 70.1 nmole s/L 18.2-1 35.5 Not Available [facility] [address] [place], [address], 05/28/2022 16:17:53 05/22/20 22 05/22/2022 HEMOG LOBIN A1C hemoglobin A1C 5.2 % 0-5.6 The Ameri can Diabe sheryl Assoc iatio n recom mends that a prima ry goal of thera py tianna mathew be a HBA1C of < 7% and that physi cians shoul d reeva luate the treat ment regim en in patie nts with HBA1C value s consi stent ly > 8%. <5.7% Elba l 5.7 - 6.4% Incre ased risk for diabe sheryl >=6.5 % Diagn ostic of diabe sheryl <7.0% Goal of thera py >8.0% Actio n sugge sted Not Available [facility] [address] [place], [address], 05/28/2022 16:17:53 05/22/20 22 05/22/2022 ESTRA DIOL estradiol 119.0 pg/mL This assay was perfo rmed using [employer] [facility] and test kits. Value s obtai nida with other assay metho ds or kits canno t be used inter [facility] . Femal e Estra diol Range s: Folli cular phase 12.4- 233 pg/mL Ovula tion phase 41.0- 398 pg/mL Lutea l phase 22.3- 341 pg/mL Postm enopa usal< 5-138 pg/mL Healt hy Pregn ant Women 1st Trime ster1 54-32 43 pg/mL 2nd Trime ster1 561-2 1280 pg/mL 3rd Trime ster8 525-> 94054 pg/mL Not Available [facility] [address] [place], [address], 05/28/2022 16:17:54 05/22/20 22 05/22/2022 PROGE STERO NE progesterone <0.05 NG/mL This assay was perfo rmed using [employer] [facility] and test kits. Value s obtai nida with other assay metho ds or kits canno t be used inter [facility] eay . Femal e Proge stero ne Range s: Folli cular phase 0.06- 0.89 ng/mL Ovula tion phase 0.12- 12.00 ng/mL Lutea l phase 1.83- 23.90 ng/mL Postm enopa usal< 0.05- 0.13 ng/mL Healt hy Pregn ant Women 1st Trime ster1 1.0-4 4.30 2nd Trime ster2 5.40- 83.30 3rd Trime ster5 8.70- 214.0 0 Not Available [facility] [address] [place] [address], [address], 05/28/2022 16:17:54 05/22/20 22 05/22/2022 PROLA CTIN prolactin, total 11.90 NG/mL 4.79-2 3.30 This assay was perfo rmed using [employer] reage nts and test kits. Value s obtai nida with other assay metho ds or kits canno t be used inter [facility] eahewitt . Not Available [facility] [address] [place] [address], [address], 05/28/2022 16:17:55 05/22/20 22 05/22/2022 LH (LUTE NIZIN G HORMO NE) LH 3.6 mIU/m L This assay was perfo rmed using [employer] reage nts and test kits. Value s obtai nida with other assay metho ds or kits canno t be used inter [facility] eay . Femal es Mid-F ollic ular: 2.4-1 2.6 mIU/m L Mid-C ycle: 14.0- 95.6 mIU/m L Mid-L uteal : 1.0-1 1.4 mIU/m L Postm enopa use: 7.7-5 8.5 mIU/m L Not Available [facility] [address] [place], [address], 05/28/2022 16:17:55 05/22/20 22 05/22/2022 FSH FSH 6.0 mIU/m L This assay was perfo rmed using [employer] reage nts and test kits. Value s obtai nida with other assay metho ds or kits canno t be used inter [facility] eably . Femal es Folli cular : 3.5-1 2.5 mIU/m L Ovula tion: 4.7-2 1.5 mIU/m L Lutea l: 1.7-7 .7 mIU/m L Postm enopa use: 25.8- 134.8 mIU/m L Not Available [facility] [address] [place], [address], 05/28/2022 16:17:56 05/22/20 22 05/22/2022 VITAM IN D, 25-OH (TOTA L D2/D3 ) vitamin D, 25-hydroxy, total 23.5 NG/mL 30.0-1 00.0 low Sugge stive of Defic iency : <20 ng/mL Sugge stive of Insuf ficie ncy: 20-29 ng/mL Sugge stive of Suffi cienc y: 30-10 0 ng/mL Sugge stive of Toxic ity: >150 ng/mL Not Available [facility] [address] [place], [address], 05/28/2022 16:17:56 05/22/20 22 05/22/2022 TESTO STERO NE, FREE( DIALY SIS) AND TOTAL (LC/M S/MS) testosterone , total 12 NG/dL 2-45 For addit ional infor wanda teran e refer to http: //edu namrata haas.que stdia gnost ics.c om/fa q/Tot alTes toste Dedrick [facility] (This link is being provi ded for infor sami kelley/ educa rafael l purpo ses only. ) This test was devel chris and its dorinda tical perfo rmanc e zechariah cteri stics have been deter mined by [facility]. It has not been clear ed or appro suzie by the FDA. This assay has been valid ated pursu ant to the CLIA regul ation s and is used for clini stephani purpo ses. Not Available [facility] [address] [place], [address], 05/28/2022 16:17:57 05/22/20 22 05/22/2022 TESTO STERO NE, FREE( DIALY SIS) AND TOTAL (LC/M S/MS) testosterone , free 1.0 pg/mL 0.1-6. 4 This test was devel oped and its dorinda tical perfo rmanc e zechariah cteri stics have been deter mined by [employer] [facility]. It has not been clear ed or appro suzie by the FDA. This assay has been valid ated pursu ant to the CLIA regul ation s and is used for clini stephani purpo ses. Perfo rming Organ izati on Infor matliya n: Site ID: [id number] Name: [employer] [facility] [facility] Addre ss: [id number] [facility] [place] [address] Direc tor: José Manuel venegas M.D. Not Available [facility] [address] [place], [address], 05/28/2022 16:17:57 06/02/20 23 06/02/2023 IMAGE GUIDE D PAP AND HPV REGAR DLESS image guided Pap, HPV regardless of Pap result SEE RESULT S BELOW CASE REPOR T: Cytol ogy Gynec ologi stephani Repor t Case: [id number] Autho giovani g Provi maria a: Adriana Galindo, QUARTZ CUTTER Colle cted: 06/02 1413 Order ing Locat ion: [place] Patho logy Recei suzie: 06/03 0316 First Scree n: Lucila Hagan, CT Rescr een: Missy Ward Speci men: Scree clinton Pap - Image d, Cervi x STATE MENT OF ADEQU ACY: Satis facto ry for evalu ation Trans forma tion zone compo nent prese nt FINAL DIAGN OSIS: Negat zan for Intra epith elial Sisi haas or Haley sierra (NIL) . Elect yina garcia grace d by Russ ayala Missy on 2022 at 2:03 PM ----- ----- ----- ----- ----- ----- ----- ----- ----- ----- ----- ----- ----- ----- ----- ----- ----- ---- HPV RESUL TS: HPV mRNA E6/E7 : No HPV mRNA Detec shailesh NOTE: This high risk HPV mRNA assay detec ts fourt een high- risk HPV types (16, 18, 31, 33, 35, 39, 45, 51, 52, 56, 58, 59, 66, 68) witho ut diffe renti ation . COMME NT: This speci men was revie wed by a Cytot echno logis t and/o r Patho logis t (as indic ated in this repor t) after evalu ation using the Thinp rep Imagi ng Syste m. CLINI STEPHANI INFOR MATIO N: Menst rual Statu s: LMP (if appli cable ): Clini stephani Histo ry/Pr eviou s Pap: Type of Neopl vianey (if appli cable ): Signi fican t Clini stephani Findi ngs: Other Histo ry: Hormo pau (if appli cable ): PAP EDUCA RAFAEL L NOTE: The Pap Test is a scree clinton test with an inher ent false negat zan rate. Liqui d-bas ed sampl ing may decre ase, but will not elimi oralia, false negat zan resul ts. A negat zan resul t does not precl ude the prese nce and/o r devel opmen t of disea se, since the prese nce of abnor mal cells in the sampl e depen ds on the locat ion of the lesio n and sampl ing techn ique. Ang nued regul ar scree clinton is the best metho d of cance r preve ntion . If repor shailesh cytol ogic findi ng do not corre late with physi stephani and/o r histo rical findi ngs, furth er inves tigat ion is recom jaelyn d, as clini dasha garza nted. Not Available [facility] (Lab) [address], [place], [address], 06/05/2023 15:06:47 06/17/20 24 06/17/2024 IMAGE GUIDE D PAP AND HPV REGAR DLESS image guided Pap, HPV regardless of Pap result SEE RESULT S BELOW CASE REPOR T: Cytol ogy Gynec ologi stephani Repor t Case: [id number] Autho giovani ziegler Provi maria a: Dermo dy, Edwardo , ANP, [employer] Colle cted: 06/17 1128 Order ing Locat ion: [place] Patho logy Recei suzie: 06/18 0229 First Rafaela n: Lucila Hagan, CT Speci men: Rafaela alonzo Pap - Image d, Cervi x STATE MENT OF ADEQU ACY: Satis facto ry for evalu ation Trans forma tion zone compo nent absen t ----- ----- ----- ----- ----- ----- ----- ----- ----- ----- ----- ----- ----- ----- ----- ----- ----- ---- FINAL DIAGN OSIS: Negat zan for Intra epith elimarielos haas or Haley sierra ([facility]) . Elect yina mathew by Lucila Hagan, CT on 06/27 at 12:18 PM ----- ----- ----- ----- ----- ----- ----- ----- ----- ----- ----- ----- ----- ----- ----- ----- ----- ---- HPV RESUL TS: HPV mRNA E6/E7 : No HPV mRNA Detec shailesh NOTE: This high risk HPV mRNA assay detec ts fourt een high- risk HPV types (16, 18, 31, 33, 35, 39, 45, 51, 52, 56, 58, 59, 66, 68) witho ut diffe renti ation . COMME NT: This speci men was revie wed by a Cytot echno logis t and/o r Patho logis t (as indic ated in this repor t) after evalu ation using the Thinp rep Imagi ng Syste m. CLINI STEPHANI INFOR MATIO N: Menst rual Statu s: LMP (if appli cable ): Clini stephani Histo ry/Pr eviou s Pap: Type of Neopl vianey (if appli cable ): Signi fican t Clini stephani Findi ngs: Other Histo ry: Hormo pau (if appli cable ): PAP EDUCA RAFAEL L NOTE: The Pap Test is a scree clinton test with an inher ent false negat zan rate. Liqui d-bas ed sampl ing may decre ase, but will not elimi oralia, false negat zan resul ts. A negat zan resul t does not precl ude the prese nce and/o r devel opmen t of disea se, since the prese nce of abnor mal cells in the sampl e depen ds on the locat ion of the lesio n and sampl ing techn ique. Ang nued regul ar scree clinton is the best metho d of cance r preve ntion . If repor shailesh cytol ogic findi ng do not corre late with physi stephani and/o r histo rical findi ngs, furth er inves tigat ion is recom jaelyn d, as clini dasha warradam nted. Not Available [facility] (Lab) [address], [place], [address], 06/27/2024 13:22:10 04/15/20 22 04/15/2022 US, obste tric, follo w-up No observ ation record ed. [email or web address] [place] [address], [place], [address], 04/15/2022 10:33:53 04/15/20 22 04/15/2022 US, obste tric, follo w-up No observ ation record ed. [email or web address] [address], [place], [address], 04/15/2022 22:04:33 04/24/20 22 04/24/2022 non-s tress test No observ ation record ed. [email or web address] [place] [address], [place], [address], 04/24/2022 13:11:29 04/24/20 22 04/24/2022 US, obste tric, bioph ysica l profi le No observ ation record ed. [facility] [address], [place], [address], 04/25/2022 09:31:57 Result Notes None recorded. Problems Name Problem SNOMED Code Status Onset Date Resolution Date Notes Provider Name and Address Organization Details Recorded Time Gestatio nal diabetes mellitus [id number] Completed 201810/02/2021 Gestatio nal diabetes mellitus in pregnanc y, diet controll ed;Recor ded Elsewher e: No Locat ion: [facility] S ource: EHR Grinding Machine Tender mukesh: N Leolati ce ID: 0001 Sukhjinder lable Time: 04:45:00 PM Narcisa choe [facility] 2 15:16:[address] Concept Completed 201810/02/2021 Matern care for abnlt fetl hrt rate or rhym, 3rd tri, unsp;Rec orded Elsewher e: No Locat ion: [facility] S ource: EHR Grinding Machine Tender mukesh: N Practi ce ID: 0001 Sukhjinder lable Time: 04:00:00 PM Narcisa choe [facility] 2 15:17:14 Syphilis test finding [id number] Completed 201410/02/2021 Encntr screen for infectio ns w sexl mode of transmis s;Record ed Elsewher e: No Locat ion: [facility] S ource: EHR Grinding Machine Tender mukesh: N Practi ce ID: 0001 Sukhjinder lable Time: 10:15:00 AM Narcisa choe, [facility] 2 15:17:20 Gestatio n period, 30 weeks [id number] Completed 201810/02/2021 30 weeks gestatio n of pregnanc y;Record ed Elsewher e: No Locat ion: [facility] S ource: EHR Grinding Machine Tender mukesh: N Practi ce ID: 0001 Sukhjinder lable Time: 03:00:00 PM Narcisa choe, [facility] 2 15:16:15 Vaginola bial hernia Completed 201610/02/2021 Other specifie d noninfla mmatory disorder s of vagina;R ecorded Elsewher e: No Locat ion: [facility] S ource: EHR Grinding Machine Tender mukesh: N Leolati ce ID: 0001 Sukhjinder lable Time: 02:00:00 PM Narcisa choe, [facility] 2 15:17:50 Gestatio n period, 37 weeks [id number] Completed 201810/02/2021 37 weeks gestatio n of pregnanc y;Record ed Elsewher e: No Locat ion: [facility] S ource: EHR Grinding Machine Tender mukesh: N Practi ce ID: 0001 Sukhjinder lable Time: 04:00:00 PM Narcisa choe, [facility] 2 15:16:26 Normal pregnanc y in multigra raul [id number] Completed 201810/02/2021 Encounte r for supervis ion of other normal pregnanc y, 3rd trimeste r;Record ed Elsewher e: No [facility]: EHR Grinding Machine Tender mukesh: N Leolati ce ID: 0001 Sukhjinder lable Time: 03:30:00 PM Narcisa choe [facility] 2 15:16:54 Gestatio n period, 35 weeks [id number] Completed 201810/02/2021 35 weeks gestatio n of pregnanc y;Record ed Elsewher e: No Locat ion: [facility] S ource: EHR Grinding Machine Tender mukesh: N Practi ce ID: 0001 Sukhjinder lable Time: 04:45:00 PM Narcisa choe [facility] 2 15:16:23 Gestatio n period, 36 weeks [id number] Completed 201810/02/2021 36 weeks gestatio n of pregnanc y;Record ed Elsewher e: No Locat ion: [facility] S ource: EHR Grinding Machine Tender mukesh: N Practi ce ID: 0001 Sukhjinder lable Time: 08:45:00 AM Narcisa choe [facility] 2 15:16:24 Low risk human papillom avirus deoxyrib onucleic acid detected in specimen from cervix [id number] Completed 201510/02/2021 Cervical low risk HPV DNA test positive ;Recorde d Elsewher e: No Locat ion: [facility] S ource: EHR Grinding Machine Tender mukesh: N Practi ce ID: 0001 Sukhjinder lable Time: 09:15:00 AM Narcisa choe [facility] 2 15:16:39 Gestatio n period, 33 weeks [id number] Completed 201810/02/2021 33 weeks gestatio n of pregnanc y;Record ed Elsewher e: No Locat ion: [facility] S ource: EHR Grinding Machine Tender mukesh: N Practi ce ID: 0001 Sukhjinder lable Time: 04:00:00 PM Narcisa choe [facility] 2 15:16:19 Gestatio n period, 32 weeks [id number] Completed 09/03/ 2019 10/02/2021 32 weeks gestatio n of pregnanc y;Record ed Elsewher e: No Locat ion: [facility] S ource: EHR Grinding Machine Tender mukesh: N Practi ce ID: 0001 Sukhjinder lable Time: 04:45:00 PM Narcisa choe, [facility] 2 15:16:[address] Concept Completed 201810/02/2021 Encntr for band shover exam (general ) (routine ) w/o abn findings ;Recorde d Elsewher e: No Locat ion: [facility] S ource: EHR Grinding Machine Tender mukesh: N Practi ce ID: 0001 Sukhjinder lable Time: 09:45:00 AM Narcisa choe, [facility] 2 15:17:17 Pregnanc y detectio n examinat ion Completed 201810/02/2021 Encounte r for pregnanc y test, result positive ;Recorde d Elsewher e: No Locat ion: [facility] S ource: EHR Grinding Machine Tender mukesh: N Practi ce ID: 0001 Sukhjinder lable Time: 09:45:00 AM Narcisa choe, [facility] 2 15:16:58 Ill-defi nida intestin al infectio n Completed 201110/02/2021 No Show Fee;Prac fredy ID: 0001 Narcisa choe, [facility] 2 15:16:41 Acute vaginiti s [id number] Completed 201410/02/2021 Acute vaginiti s;Practi ce ID: 0001 Narcisa choe, [facility] 2 15:15:[address] Concept Completed 201410/02/2021 Encntr for band shover exam (general ) (routine ) w abnormal findings ;Practic e ID: 0001 Narcisa choe, [facility] 2 15:17:16 Screenin g for malignan t neoplasm of cervix Completed 201410/02/2021 Encounte r for screenin g for malignan t neoplasm of cervix;P ractice ID: 0001 Narcisa choe [facility] 2 15:17:08 Pregnanc y test negative [id number] Completed 201410/02/2021 Encounte r for pregnanc y test, result negative ;Practic e ID: 0001 Narcisa choe [facility] 2 15:16:59 Neoplasm of uterine cervix Completed 201410/02/2021 Mild cervical dysplasi a;Practi ce ID: 0001 Narcisa choe [facility] 2 15:16:51 Goiter [id number] Completed 201710/02/2021 Nontoxic goiter, unspecif ied;Prac fredy ID: 0001 Narcisa Gilmore [facility] 2 15:16:33 Removal of intraute rine device Completed 201710/02/2021 Encounte r for removal of intraute rine contrace ptive device;P ractice ID: 0001 Narcisa Gilmore дмитрий [facility] 2 15:17:06 Threaten ed miscarri age [id number] Completed 201710/02/2021 Threaten ed ;Practic e ID: 0001 Narcisa Gilmore [facility] 2 15:17:43 Gestatio n less than 9 weeks [id number] Completed 201710/02/2021 Less than 8 weeks gestatio n of pregnanc y;Practi ce ID: 0001 Narcisa Gilmore [facility] 2 15:16:11 Hemorrha gic complica tion of pregnanc y [id number] Completed 201810/02/2021 Other hemorrha ge in early pregnanc y;Practi ce ID: 0001 Narcisa Gilmore дмитрий, [facility] 2 15:16:35 Gestatio n period, 10 weeks [id number] Completed 201810/02/2021 10 weeks gestatio n of pregnanc y;Practi ce ID: 0001 Narcisa Gilmore дмитрий, [facility] 2 15:16:13 Emotiona l state finding Completed 201810/02/2021 Other specifie d anxiety disorder s;Practi ce ID: 0001 Narcisa Gilmore дмитрий, [facility] 2 15:16:07 Antenata l screenin g Completed 201810/02/2021 Encounte r for other specifie d antenata l screenin g;Practi ce ID: 0001 Narcisa Gilmore дмитрий, [facility] 2 15:15:39 Antenata l screenin g for malforma tion Completed 201810/02/2021 Encounte r for antenata l screenin g for malforma tions;Pr actice ID: 0001 Narcisajesse choe, [facility] 2 15:15:41 Diet educatio n Completed 201810/02/2021 Dietary counseli ng and surveill ance;Pra ctice ID: 0001 Narcisa Gilmore дмитрий, [facility] 2 15:16:02 Dietary manageme nt surveill ance Completed 201810/02/2021 Dietary counseli ng and surveill ance;Pra ctice ID: 0001 Narcisa Gilmore дмитрий, [facility] 2 15:16:05 Gestatio n period, 38 weeks [id number] Completed 201810/02/2021 38 weeks gestatio n of pregnanc y;Practi ce ID: 0001 Narcisa Gilmore дмитрий, [facility] 2 15:16:[address] Concept Completed 201810/02/2021 Supervis ion of other high risk pregnanc ies, third trimeste r;Practi ce ID: 0001 Narcisa choe, [facility] 2 15:17:12 Single live from singleto n pregnanc y [id number] Completed 201810/02/2021 Single live ;Pr actice ID: 0001 Narcisa choe, [facility] 2 15:17:10 Procedur e on genitour inary system Completed 201810/02/2021 Encounte r for surgical aftcr followin g surgery on the sys;Prac fredy ID: 0001 Narcisa choe, [facility] 2 15:17:04 Postoper ative care Completed 201810/02/2021 Encounte r for surgical aftcr followin g surgery on the sys;Prac fredy ID: 0001 Narcisa choe, [facility] 2 15:16:56 Finding of lactatio n Completed 201810/02/2021 Hypogala ctia;Pra ctice ID: 0001 Narcisa choe, [facility] 2 15:16:09 Depressi ve disorder [id number] Completed 201810/02/2021 Major depressi ve disorder , single episode, unspecif ied;Prac fredy ID: 0001 Narcisa choe, [facility] 2 15:16:01 Insertio n of intraute rine contrace ptive device Completed 201810/02/2021 Encounte r for insertio n of intraute rine contrace ptive device;P ractice ID: 0001 Narcisa choe, [facility] 2 15:16:46 Clinical finding Completed 201910/02/2021 Presence of (intraut erine) contrace ptive device;P ractice ID: 0001 Narcisa choe, [facility] 2 15:15:43 Tobacco dependen ce caused by cigarett es [id number] Completed 201710/02/2021 Nicotine dependen ce due to cigarett es;Recor ded Elsewher e: No [facility]: EHR Grinding Machine Tender mukesh: N Leolati ce ID: 0001 Sukhjinder lable Time: 11:30:00 AM Narcisa choe [facility] 2 15:17:48 Human papillom avirus deoxyrib onucleic acid detected , high risk on cervical specimen [id number] Completed 201410/02/2021 Cervical high risk HPV DNA test positive ;Recorde d Elsewher e: No Locat ion: [facility] S ource: EHR Grinding Machine Tender mukesh: N Leolati ce ID: 0001 Sukhjinder lable Time: 10:15:00 AM Narcisa Gilmore [facility] [address] 15:16:[address] Concept Completed 201710/02/2021 Encounte r for general adult medical exam with abnormal finding; Recorded Elsewher e: No Locat ion: [facility] S ource: EHR Grinding Machine Tender mukesh: N Practi ce ID: 0001 Sukhjinder lable Time: 11:30:00 AM Narcisa choe [facility] 2 15:17:01 Gestatio n period, 34 weeks [id number] Completed 201810/02/2021 34 weeks gestatio n of pregnanc y;Record ed Elsewher e: No Locat ion: [facility] S ource: EHR Grinding Machine Tender mukesh: N Practi ce ID: 0001 Sukhjinder lable Time: 08:30:00 AM Narcisa choe [facility] 2 15:16:21 Missed miscarri age [id number] Completed 201710/02/2021 Missed ;Recorde d Elsewher e: No [facility]at [facility] S ource: EHR Grinding Machine Tender mukesh: N Luciano ce ID: 0001 Sukhjinder lable Time: 02:00:00 PM Narcisa choe, [facility] 2 15:16:48 Infectio n screenin g Completed 201410/02/2021 Encounte r for screenin g for oth infec/pa rastc diseases ;Recorde d Elsewher e: No [facility] S [facility]: EHR Grinding Machine Tender mukesh: N Practi ce ID: 0001 Sukhjinder lable Time: 10:15:00 AM Narcisa Gilmore [facility], [facility] 2 15:16:42 Pregnanc y [id number] Completed 202105/26/2022 Cherry Ty hl null, [facility] 2 12:41:10 Asthma [id number] Completed rescue inhaler less than once per week Cherry Ty hl null, [facility] 2 12:41:06 Past pregnanc y history of gestatio nal diabetes mellitus [id number] Completed normal HgA1C, normal screen time, was diet controll ed. 1hr GTT WNL Cherry Ty hl null, [facility] 2 12:41:06 COVID-19 [id number] Completed around the time concepti on, asa Cherry Ty hl null, [facility] 2 12:41:06 Past pregnanc y history of gestatio nal diabetes mellitus [id number] Active normal HgA1C, normal screen time, was diet controll ed. 1hr GTT WNL Cherry Navarronstie hl null, [facility] 2 12:41:06 Asthma 121225852 Active rescue inhaler less than once per week Cherry Ty null, [facility] 2 12:41:06 Advanced maternal age 340159747 Completed Cherry Ty hl null, [facility] 2 12:41:06 Deliveri es by [id number] Completed to repeat Cherry Ty null, [facility] 2 12:41:06 Problem Notes None recorded. Procedures Surgical History Date Name Laterality Status Provider Name and Address Organization Details Recorded Time 04/24/20 22 SECTION (SURG) completed Val Snyder [facility] 05/22/2022 11:30:35 06/06/20 20 IUD Removal completed Chula Arroyo CNM [address], [place], [address], [facility] 06/06/2020 17:47:56 06/06/20 20 Date of Last Pap Smear completed Narcisa Gilmore [facility] 09/24/2022 11:17:40 05/18/20 19 section completed Narcisa Gilmore [facility] 04/28/2020 08:09:01 06/18/20 15 Colposcopy completed Narcisa Gilmore [facility] 10/08/2021 12:05:44 06/18/20 15 Colposcopy completed Narcisa Gilmore [facility] 10/08/2021 12:14:12 08/03/19 15 completed Narcisa Gilmore [facility] 06/14/2020 10:37:45 08/03/18 99 extraction of wisdom tooth completed Narcisa Gilmore [facility] 10/08/2021 12:11:04 08/03/18 89 Tonsillectomy completed Narcisa Gilmore [facility] 10/08/2021 12:11:22 Colposcopy completed Gabi Carter [facility] 06/02/2023 09:29:50 Tonsillectomy completed Gabi Carter [facility] 06/02/2023 09:29:50 Imaging Results Imaging Date Name Status LastModified by Organiz ation Details LastModified Time 04/15/2022 US, obstetric, follow-up completed [place] [address], [place], [address], 04/15/2022 10:33:53 04/15/2022 US, obstetric, follow-up completed [email or web address], [place], [address], 04/15/2022 22:04:33 04/24/2022 non-stress test completed [address], [place], [address], 04/24/2022 13:11:29 04/24/2022 US, obstetric, biophysical profile completed [address], [place], [address], 04/25/2022 09:31:57 Procedure Notes None recorded. Medical Equipment None Reported. Allergies No known drug allergies Medications Name Sig Start Date Stop Date Status Note LastModified by Organization Details LastModified Time amoxicill in 500 mg capsule TAKE 1 CAPSULE BY MOUTH EVERY 8 HOURS TIL GONE 06/02 completed Not Available Not Available Not Available Mirena 21 mcg/24 hr (up to 8 years) 52 mg intrauter ine device Take by intraute rine route. 10/02 completed Not Available Not Available Not Available azithromy carly 250 mg tablet TAKE 2 TABLETS BY MOUTH FOR 1 DAY THEN TAKE 1 TABLET BY MOUTH DAILY FOR 4 DAYS 06/17 completed Not Available Not Available Not Available hydrocodo ne 5 mg-acetam inophen 325 mg tablet TAKE 1 TABLET BY MOUTH EVERY 4 HOURS NEEDED FOR PAIN 09/24 completed Not Available Not Available Not Available clonazepa m 0.5 mg tablet take 1 tablet by oral route 3 times every day 10/02 completed Not Available Not Available Not Available Diflucan 150 mg tablet take 1 tablet by oral route once 12/05 completed Prescrib ed Elsewher e: No Locat ion: [facility] odify By: young escobedo DateTime : 07/24/20 01:17:40 PM Not Available Not Available Not Available Tessalon Perles 100 mg capsule take 1 capsule by oral route 3 times every day as needed for cough 10/15 completed Prescrib ed Elsewher e: No Locat ion: [facility] odify By: danish buckley DateTime : 10/16/19 08:28:31 AM Not Available Not Available Not Available Microgest in FE 08/22 (28) 1 mg-20 mcg (21)/75 mg (7) tablet take 1 tablet daily 10/02 completed Not Available Not Available Not Available Metrogel Vaginal 0.75 % (37.5 mg/5 gram) insert 1 applicat orful by vaginal route every day at bedtime 06/18 completed Prescrib ed Elsewher e: No Locat ion: [facility] odify By: josep buckley DateTime : 05/25/20 03:13:42 PM Not Available Not Available Not Available Zoloft 50 mg tablet take 1 tablet by oral route every day 04/15 completed Prescrib ed Elsewher e: No Locat ion: [facility] odify By: fernando robles DateTime : 11/13/19 11:00:00 AM Not Available Not Available Not Available buspirone 10 mg tablet 06/17 completed Not Available Not Available Not Available Advair Diskus 250 mcg-50 mcg/dose powder for inhalatio n Inhale 1 puff twice a day by inhalati on route. 09/24 completed Not Available Not Available Not Available monteluka st 10 mg tablet 06/17 completed Not Available Not Available Not Available hydroxyzi ne HCl 25 mg tablet 06/02 completed Not Available Not Available Not Available ergocalci ferol (vitamin D2) 1,250 mcg (50,000 unit) capsule TAKE 1 CAPSULE BY MOUTH EVERY WEEK DIRECTED 06/02 completed Not Available Not Available Not Available methylpre dnisolone 4 mg tablets in a dose pack 06/17 completed Not Available Not Available Not Available albuterol sulfate HFA 90 mcg/actua tion aerosol inhaler active Not Available Not Available Not Available dicyclomi ne 10 mg capsule TAKE 1 CAPSULE BY MOUTH FOUR TIMES DAILY NEEDED ABDOMINA L PAIN OR CRAMPS 10/02 completed Not Available Not Available Not Available metoclopr amide 10 mg tablet TAKE 1 TABLET BY MOUTH FOUR TIMES DAILY 09/24 completed Not Available Not Available Not Available amoxicill in 500 mg-potass ium clavulana te 125 mg tablet TAKE 1 TABLET BY MOUTH TWICE DAILY UNTIL ALL TAKEN 10/02 completed Not Available Not Available Not Available escitalop waylon 10 mg tablet TAKE 1 TABLET BY MOUTH EVERY DAY 06/02 completed Not Available Not Available Not Available escitalop waylon 20 mg tablet TAKE 1 TABLET BY MOUTH EVERY DAY active Not Available Not Available No t Available bupropion HCl XL 150 mg 24 hr tablet, extended release active Not Available Not Available Not Available Abilify 9.75 mg/1.3 mL intramusc ular solution 07/23 completed Prescrib ed Elsewher e: Yes Loca tion: [facility] odify By: [email or web address] Javed r DateTime : 06/18/20 15 09:00:00 AM Not Available Not Available Not Available Fora [id number]-D 10-D20 strips-la ncets 30 gauge combo pack checking BS QID fasting, and 1hr pp 10/02 completed Prescrib ed Elsewher e: No Locat ion: [facility] odify By: [email or web address] Encounte r DateTime : 03/17/20 10:14:46 AM Not Available Not Available Not Available Slynd 4 mg (28) tablet Take 1 tablet every day by oral route. active Not Available Not Available No t Available Flucelvax Quad (PF) 60 mcg (15 mcg x 4)/0.5 mL IM syringe PHARMACY ADMINIST ERED 10/02 completed Not Available Not Available Not Available Vitals Date Recorded Body height Body mass index (BMI) Systolic blood pressure Diastolic blood pressure Provider Name and Address Organization Details Last Updated DateTime 05/01/2022 161.29 cm 28.8 kg/m2 118 mm[Hg] 71 mm[Hg] [facility] 05/01/2022 11:46:42 Date Recorded Body weight Provider Name an d Address Organization Details Last Updated DateTime 05/01/2022 48358.35746 [facility] 05/26/2022 12:41:06 Date Recorded Body height Body mass index (BMI) Systolic blood pressure Diastolic blood pressure Provider Name and Address Organization Details Last Updated DateTime 05/22/2022 161.29 cm 28.1 kg/m2 110 mm[Hg] 61 mm[Hg] [facility] 05/22/2022 11:43:29 Date Recorded Body weight Provider Name an d Address Organization Details Last Updated DateTime 05/22/2022 80412.35911 g [email or web address] 05/26/2022 12:41:06 Date Recorded Body height Body mass index (BMI) Body weight Systolic blood pressure Diastolic blood pressure Provider Name and Address Organization Details Last Updated DateTime 09/24/2022 161.29 cm 26.5 kg/m2 29026.04 g 121 mm[Hg] 79 mm[Hg] Narcisa Gilmore [facility] 3 11:16:52 Date Recorded Body height Body mass index (BMI) Body weight Systolic blood pressure Diastolic blood pressure Provider Name and Address Organization Details Last Updated DateTime 06/02/2023 161.29 cm 26.2 kg/m2 73384.86 g 118 mm[Hg] 77 mm[Hg] [facility] 10/31/202 3 09:35:22 Date Recorded Body weight Body mass index (BMI) Body height Systolic blood pressure Diastolic blood pressure Provider Name and Address Organization Details Last Updated DateTime 06/17/2024 10188.75 g 27.7 kg/m2 161.29 cm 116 mm[Hg] 76 mm[Hg] Lourdes Rachel [facility] 4 11:25:46 Social History Question Answer Notes LastModified by Organizat ion Details LastModified Time Tobacco Smoking Status Former Smoker Debby Gonzalez дмитрий, [facility] 06/02/2023 09:21:07 Do You Have An Advance Directive? No Information not available 10/29/2021 What Is Your Level Of Alcohol Consumption? Occasional [email or web address] Information not available 06/14/2020 Are You Blind Or Do You Have Difficulty Seeing? No Information not available 10/29/2021 What Is Your Level Of Caffeine Consumption? Moderate Information not available 10/29/2021 In The 14 Days Before Symptom Onset, Have You Had Close Contact With A Laboratory-confir med COVID-19 While That Case Was Ill? No Information not available 10/29/2021 In The 14 Days Before Symptom Onset, Have You Had Close Contact With A Person Who Is Under Investigation For COVID-19 While That Person Was Ill? No Information not available 10/29/2021 Have You Been To An Area Known To Be High Risk For COVID-19? No Information not available 10/29/2021 Are You Deaf Or Do You Have Serious Difficulty Hearing? No Information not available 10/29/2021 What Type Of Diet Are You Following? REGULAR Information not available 10/29/2021 Do You Or Have You Ever Used E-cigarettes Or Vape? Never Used Electronic Cigarettes [email or web address] Information not available 06/02/2023 What Is The Highest Grade Or Level Of School You Have Completed Or The Highest Degree You Have Received? [id number] Information not available 10/29/2021 What Is Your Occupation? [employer] Information not available 10/29/2021 Are There Any Guns Present In Your Home? No Information not available 10/29/2021 What Was The Date Of Your Most Recent Tobacco Screening? 09/24/2022 [email or web address] Information not available 06/02/2023 Do You Use Protection During Sex? No Information not available 10/29/2021 Do You Use Your Seat Belt Or Car Seat Routinely? Yes Information not available 10/29/2021 Do You Have Smoke And Carbon Monoxide Detectors In Your Home? Yes Information not available 10/29/2021 Do You Or Have You Ever Used Smokeless Tobacco? Never Used Smokeless Tobacco [email or web address] Information not available 06/02/2023 How Much Tobacco Do You Smoke? No [email or web address] Information not available 06/14/2020 Do You Feel Stressed (tense, Restless, Nervous, Or Anxious, Or Unable To Sleep At Night)? [id number] Information not available 10/29/2021 Do You Use Any Illicit Or Recreational Drugs? No Information not available 10/29/2021 Do You Use Sunscreen Routinely? No Information not available 10/29/2021 Have You Used IV Drugs? No Information not available 10/29/2021 Sex: Unknown Functional Status Question Answer Note LastModified by Organizat ion Details LastModified Time Do you have difficulty walking or climbing stairs? No [email or web address] Information not available 06/02/2023 Are you able to care for yourself? Yes [email or web address] Information not available 06/02/2023 Do you have difficulty dressing or bathing? No Information not available 06/02/2023 What is your exercise level? Occasional [email or web address] Information not available 06/14/2020 Mental Status None recorded. Family History Relationship Description Onset Age of this Age Resolved Age Notes LastModified by Organization Details LastModified Time Father Malignant tumor of pharynx [email or web address] Not available 2023 11:14:00 Maternal Aunt Diabetes mellitus [email or web address] Not available 04/28 08:07:56 Paternal Grandmother Diabetes mellitus [email or web address] Not available 04/28 08:07:56 Brother Diabetes mellitus [email or web address] Not available 04/28 08:07:56 Maternal Grandmother Hypertensive disorder [email or web address] Not available 04/28 08:08:13 Maternal Grandfather Malignant tumor of colon [email or web address] Not available 04/28 08:08:40 Paternal Grandfather Malignant tumor of colon [email or web address] Not available 04/28 08:08:40 Mother Malignant tumor of cervix [email or web address] Not available 06/14 10:39:56 Medical History Condition Response Allergies (Food, seasonal, environmental ) Y Other N Drug/Latex Allergies/Reactions N Breast Cancer N Blood Transfusion N Dermatologic Disorders N Lung Disease Y Defects or Inherited Disease N Breast Problem N Gestational Diabetes Y Hematologic disorders N Anesthesia Complications N History of STI Y Deep Vein Thrombosis N Polycystic ovary syndrome N Anxiety Disorder Y Autoimmune disease N Arthritis N Polyps N Infertility N Acid Reflux (GERD) N History of abnormal pap Y Cancer N Varicosities N Stroke N Neurologic/Epilepsy N Endometriosis N High Cholesterol N Fibromyalgia N Headaches N Kidney Disease N Heart Problems N Thyroid Problems N Kidney or Bladder Problems N GI Problems N Eating Disorder N Anemia N Art (IVF or FET) N Psychiatric Illness N Ovarian Cancer N Diabetes Y Pulmonary (TB, Asthma) Y Hepatitis/Liver Disease N No Past Medical History N Eczema N Urinary Tract Infection N Abuse/Domestic Violence N Asthma Y Trauma/Violence N Depression/ depression Y Pre-Eclampsia N Hypertension Y Osteoporosis N Thrombophilias N Gynecological History Statement/Question Response Abnormal Pap Y Date of Last Mammogram Flow Moderate Date of LMP 06/09/2024 N Was last menstrual period normal Y STIs/STDs Yes HPV Vaccine N Colposcopy 06/18/2015 Current Control Method Sterilizati on Age at First Child 17 Most Recent Bone Density Sexually Active? Y Menses Monthly Y Age of first menstrual cycle 13 Date of Last Pap Smear 06/06/2020 Sexual Problems? N LMP Approximate 08/03/2014 N Obstetrics History GPAL:G 5 P 5 0 0 5 Type Value Full Term 5 Living 5 Total 5 Immunizations Vaccine Type Date Status Note Provider Nam e and Address Organization Details Recorded Time COVID-19, mRNA, LNP-S, PF, 30 mcg/0.3 mL dose 01/09/2021 completed Narcisa Gilmore [facility] 10/02/2021 15:25:26 Influenza, split virus, quadrivalent, PF 04/25/2021 josse Gilmore [facility] 10/02/2021 15:25:26 Past Encounters Encounter ID Performer Location Encounter Start Date Encounter Closed Date Diagnosis/Indication Diagnosis SNOMED-CT Code Diagnosis ICD10 Code Diagnosis Note [id number] Chula Arroyo [facility] [address],[place] [address] 05/02/2020 09:21:05 05/02/2020 12:46:31 Anxiety 36786243 F41.9 [id number] Chula Arroyo [facility] [address],[place] [address] 06/06/2020 10:45:48 06/07/2020 16:38:44 Gynecologic examination 45068865 Z01.419 Removal of intrauterine device 43556245 Z30.432 [id number] Jennifer Doyle [facility] [address],[place] [address] 10/02/2021 14:12:19 10/02/2021 14:36:05 [id number] Chula Arroyo [facility] [address],[place] [address] 10/02/2021 14:13:44 10/02/2021 15:28:22 Secondary amenorrhea 124294397 N91.1 [id number] Jennifer Doyle [facility] [address],[place] [address] 10/29/2021 11:51:15 10/29/2021 12:29:11 screening [id number] Z36.82 [id number] Jonh Greenberg MD [facility] [address],[place] [address] 10/29/2021 11:53:10 10/29/2021 16:06:58 Asthma in 1725724003 9103 J45.909 Routine an tenatal care 971097414 Z34.91 [id number] Sheree Barnett MD [facility] [address],[place] [address] 11/19/2021 10:35:52 11/19/2021 12:04:48 [id number] Jennifer Doyle [facility] [address],[place] [address] 12/24/2021 09:18:41 12/24/2021 10:26:40 screening 343780852 Z36.3 [id number] Jonh Greenberg MD [facility] [address],[place] [address] 12/24/2021 09:19:04 12/24/2021 11:33:41 Asthma 921348855 J45.909 [id number] Jonh Greenberg MD [facility] [address],[place] [address] 01/21/2022 10:00:56 01/21/2022 10:55:03 Routine care 242385030 Z34.91 [id number] [facility] [address],[place] [address] 01/21/2022 10:44:03 01/21/2022 11:15:11 Advanced maternal age 285207922 O09.292 O09.522 Z3A.24 [id number] [facility] [address],[place] [address] 02/18/2022 09:06:25 02/18/2022 10:28:59 Advanced maternal age 948473225 O09.523 Z3A.28 [id number] Jonh Greenberg MD [facility] [address],[place] [address] 02/18/2022 09:07:57 02/18/2022 10:26:41 Routine care 371161367 Z34.91 [id number] Jonh Greenberg MD [facility] [address],[place] [address] 03/04/2022 10:00:04 03/05/2022 14:59:43 Routine care 101815736 Z34.91 [id number] [facility] [address],[place] [address] 03/20/2022 15:11:58 03/20/2022 16:09:54 Advanced maternal age 971279562 O09.523 U07.1 Z3A.32 [id number] Jonh Greenberg MD [facility] [address],[place] [address] 03/20/2022 15:13:58 03/21/2022 15:30:15 section following previous section [id number] O34.219 [id number] Jonh Greenberg MD [facility] [address],[place] [address] 2022 11:55:49 2022 14:27:03 Routine care 232411639 Z34.91 [id number] Jennifer Doyle [facility] [address],[place] [address] 04/15/2022 09:56:20 04/15/2022 10:43:34 Advanced maternal age 724074146 O09.523 O99.891 U07.1 Z86.16 Z3A.36 [id number] Jonh Greenberg MD [facility] [address],[place] [address] 04/15/2022 10:04:38 04/16/2022 14:48:59 Routine care 153627010 Z34.91 [id number] Jonh Greenberg MD [facility] [address],[place] [address] 04/24/2022 11:58:52 04/24/2022 13:13:50 Routine care 696659779 Z34.91 [id number] Lourdes Rachel [facility] [address],[place] [address] 04/24/2022 12:42:03 04/24/2022 13:13:59 heart deceleration 293295583 O36.8399 [id number] Jonh Greenberg MD [facility] [address],[place] [address] 05/01/2022 11:30:18 05/01/2022 12:43:16 Postoperative care 530318065 Z48.89 42-year-ol d female presents for wound check after delivery. Her incisions clean dry and intact. She had had some nerve pain that has resolved. Mood is good, baby is well [id number] Jonh Greenberg MD [facility] [address],[place] [address] 05/22/2022 11:21:29 05/22/2022 13:02:24 Night sweats 78305891 R61 care 10399846 8 Z39.2 this patient is a 42-year-ol d multipara is 4 weeks from a delivery and bilateral salpingect larry. She complains of night sweats. She soaks her sheets. This is been going on for years. She has to change her clothes at night and shower at night while she is sleeping. She denies any mood problems. She is Bottle feeding. She is not bleeding. She has not had sex. Her baby is doing well. Her mood is good. Will obtain some labs today to look at night sweats. Will follow-up on those labs. [id number] Narcisa Gilmore [facility] [address],[place] [address] 09/24/2022 10:47:39 09/24/2022 11:42:18 Anxiety 25578292 F41.9 [id number] GILBERTO León [facility] [address],[place] [address] 06/02/2023 09:16:25 06/02/2023 10:27:35 Gynecologic examination 34208789 Z01.419 WWEBC - BSpap updatedSTI testing declinedpr imary mammogram order given, encouraged to scheduleen couraged annual exam with [facility] in 1 yr or sooner if needed Suggested Calcium with Vitamin D daily. Patient advised to get an annual flu shot in the fall and she could obtain at [facility] or [facility] take [facility]. Also to obtain TDap vaccinatio n if you have not had one in the last 10 years. Recommend yearly mammograms . Encouraged monthly self breast exams. Encourage safe sexual practices, to use condoms and limit partners if not already in a monogamous relationsh ip. Engage in daily exercise of low impact aerobic exercise 45-60 minutes 4-5 times weekly. Avoid tobacco and illicit drugs as well as using moderation with alcohol intake less than 1-2 8 oz beverages daily. This lifestyle behavior pattern will lead to less health conditions and longer life span. If BMI greater than 25 dietary consult advised. All questions have been answered. Patient appears to understand informatio n, but if you have any questions please call or respond to this email. Screening for malignant neoplasm of breast 031379870 Z12.39 [id number] EDWARDO T[place]RES, [place] [facility] [address],[place] [address] 06/17/2024 11:13:06 06/17/2024 11:56:19 Screening mammography 98947155 Z12.31 Gynecologi c examination 57140064 Z01.419 Annual gynecologi stephani exam performed. Patient will come back in a year unless there are new symptoms. Suggest Calcium with Vitamin D if not eating in diet. Patient advised to get annual flu shot. Recommend yearly physicals and perform monthly breast exams. Genetic testing is available for patients with family history of cancer. Engage in safe sexual practices, use condoms. Encouraged to have daily exercise. Avoid tobacco and illicit drugs, moderation of alcohol. If BMI greater than 25 dietary consult advised. If you have any questions please call or email. mammogram- DUE - order given, pt to schedule colon cancer screening - GI referral sent for colonoscop y DEXA scan- n/a Pap smear- pap w/ HPV collected laboratory evaluation - PCP STI testing - declined Screening colonoscopy 44 4072310 Z12.11 GI referral sent for screening colonoscop y. Health Concerns Section Related Observation LastModified by Organization Detai ls LastModified Time None Recorded Concern Status LastModified by Organization Details LastModified Time None Recorded Advance Directives Directive N: Payers Encounter Date Sequence Insurance Name Policy Number Policy Rodríguez Covered Member ID Rodríguez Member ID Guarantor Name 05/01/2022 1 [employer] (POS) [id number] Prema Singh [id number] Prema Singh 05/22/2022 1 [facility] (POS) [id number] Prema Singh [id number] Prema Singh 09/24/2022 1 [place] [id number] Prema Singh [id number] Prema Singh 06/02/2023 1 [place] [id number] Prema Singh [id number] Prema Venegas Francisco 06/17/2024 1 [place] [id number] Prema Venegas Francisco [id number] Prema Singh Notes Date Note Type Note Provider Name and Address Organization Details Recorded Time 05/01/2022 text/html 42-year-old femadam taylor presents for wound check after delivery. Her incisions clean dry and intact. She had had some nerve pain that has resolved. Mood is good, baby is well Jonh Greenberg MD [address], [place], [address], [facility] 05/01/2022 12:34:58 05/22/2022 text/html VisitReported bypatient.Notes:this patient is a 42-year-old multipara is 4 weeks from a delivery and bilateral salpingectomy. She complains of night sweats. She soaks her sheets. This is been going on for years. She has to change her clothes at night and shower at night while she is sleeping. She denies any mood problems. She is Bottle feeding. She is not bleeding. She has not had sex. Her baby is doing well. Her mood is good. Will obtain some labs today to look at night sweats. Will follow-up on those labs. Jonh Greenberg MD [address], [place], [address], [facility] 05/22/2022 12:26:28 09/24/2022 text/html med check anxiet y, first week was great then has noticed more anxiety, but was happy with initial week so will plan to increase dose, no side effectshusband home next week for about 30 days Narcisa choe, [facility] 09/25/2022 19:38:41 06/02/2023 text/html Annual GYNReport ed bypatient.Menstrual cycle:Normal menses Urinary symptoms:No hematuria; No incontinence Vulva:No genital lesion Vagina:Normal vaginal discharge Breast:No breast pain; No breast lump; No nipple discharge Current Contraception:Satisf ied with current contraception; BS Sexual complaints:No sexual complaints; No pain during intercourse; Normal libido Menopausal Symptoms:No menopausal symptoms; Normal vaginal lubrication Psychological symptoms:No depression; No anxiety; No PMDD Preventive measures:Encourage self breast examination; Encourage regular exercise; Encourage no tobacco use; Encourage regular mammograms starting age 40; History of abnormal pap smear/cervical dysplasia; Needs to schedule mammogramNotes:hx of abnormal pap/ last 2015last pap 2019 - normal GILBERTO León [address], [place], [address], [facility] 06/02/2023 10:08:20 06/17/2024 text/html Annual GYNReport ed bypatient.History:no gynecologic complaints Menstrual cycle:Normal menses Urinary symptoms:No hematuria; No incontinence Vulva:No genital lesion Vagina:Normal vaginal discharge Breast:No breast pain; No breast lump; No nipple discharge Current Contraception:Tubal ligation Sexual complaints:No sexual complaints; No pain during intercourse; Normal libido Menopausal Symptoms:No menopausal symptoms; Normal vaginal lubrication Psychological symptoms:No depression; No anxiety; No PMDD Preventive measures:Encourage self breast examination; Encourage regular exercise; Encourage no tobacco use; Encourage regular mammograms starting age 40; Needs to schedule mammogram; Needs to schedule colonoscopy Patient presents for annual well woman exam. Patient denies concerns today. EDWARDO TORRES NP [address], [place], [address], [facility] 06/17/2024 11:52:10 OBGyn Episode Ob Episode Information Episode Created Date Number of Fetuses Patient Bloodtype Patient rh Status Prepregnancy Weight lbs Domestic Partner Domestic Partner Phone Father Name Pathology Laboratory Director Status 04/28/20 20 1 CLOSED Fetus Data First Name Last Name Admitted to NICU Weight (g) Sex Living Outcome Pediatric Complications Fetus ID Race Codes Race Delivery Type 3401.94 M Full Term 4824 Vaginal Delivery Jaime Calculation Initial Jaime Date Initial Exam Date Initial Exam Provider Initial Ultrasound Date Last Menstrual Period Date Ultra Sound Weeks Gestation 0 Eighteen To Twenty Week Jaime Update Ultra Sound Date Fundal Height At Umbil Quickening Date Ultra Sound Latest Weeks Gestation Final Jaime Confirmed By Final Jaime Confirmed Date Final Jaime Date Ultra Sound Latest Days Gestation 0 0 Menstrual History Last Menstrual Date Menses Monthly On Bcp Conception Prior Menses Frequency Hcg Plus Date Menarche Onset Age Delivery Information Delivery Date Delivery Type Labor Anesthesia Weeks Gestation Incision Type Labor Labor Length Hrs Delivered By Post Complications Tubal Sterilization Discharge Date Comments 7 38 Discharge Information Feeding Method Contraceptive Method Maternal HG B and HCT Levels Ob Episode Information Episode Created Date Number of Fetuses Patient Bloodtype Patient rh Status Prepregnancy Weight lbs Domestic Partner Domestic Partner Phone Father Name Pathology Laboratory Director Status 04/28/20 20 1 CLOSED Fetus Data First Name Last Name Admitted to NICU Weight (g) Sex Living Outcome Pediatric Complications Fetus ID Race Codes Race Delivery Type 60960.6 8 M Full Term 4825 Vaginal Delivery Jiame Calculation Initial Jaime Date Initial Exam Date Initial Exam Provider Initial Ultrasound Date Last Menstrual Period Date Ultra Sound Weeks Gestation 0 Eighteen To Twenty Week Jaime Update Ultra Sound Date Fundal Height At Umbil Quickening Date Ultra Sound Latest Weeks Gestation Final Jaime Confirmed By Final Jaime Confirmed Date Final Jaime Date Ultra Sound Latest Days Gestation 0 0 Menstrual History Last Menstrual Date Menses Monthly On Bcp Conception Prior Menses Frequency Hcg Plus Date Menarche Onset Age Delivery Information Delivery Date Delivery Type Labor Anesthesia Weeks Gestation Incision Type Labor Labor Length Hrs Delivered By Post Complications Tubal Sterilization Discharge Date Comments 0 40 Discharge Information Feeding Method Contraceptive Method Maternal HG B and HCT Levels Ob Episode Information Episode Created Date Number of Fetuses Patient Bloodtype Patient rh Status Prepregnancy Weight lbs Domestic Partner Domestic Partner Phone Father Name Pathology Laboratory Director Status 04/28/20 20 1 CLOSED Fetus Data First Name Last Name Admitted to NICU Weight (g) Sex Living Outcome Pediatric Complications Fetus ID Race Codes Race Delivery Type 3997.05 2704 M Full Term 4826 Vaginal Delivery Jaime Calculation Initial Jaime Date Initial Exam Date Initial Exam Provider Initial Ultrasound Date Last Menstrual Period Date Ultra Sound Weeks Gestation 0 Eighteen To Twenty Week Jaime Update Ultra Sound Date Fundal Height At Umbil Quickening Date Ultra Sound Latest Weeks Gestation Final Jaime Confirmed By Final Jaime Confirmed Date Final Jaime Date Ultra Sound Latest Days Gestation 0 0 Menstrual History Last Menstrual Date Menses Monthly On Bcp Conception Prior Menses Frequency Hcg Plus Date Menarche Onset Age Delivery Information Delivery Date Delivery Type Labor Anesthesia Weeks Gestation Incision Type Labor Labor Length Hrs Delivered By Post Complications Tubal Sterilization Discharge Date Comments 4 39 shoulder dystocia recommend s in future Discharge Information Feeding Method Contraceptive Method Maternal HG B and HCT Levels Ob Episode Information Episode Created Date Number of Fetuses Patient Bloodtype Patient rh Status Prepregnancy Weight lbs Domestic Partner Domestic Partner Phone Father Name Pathology Laboratory Director Status 04/28/20 20 1 CLOSED Fetus Data First Name Last Name Admitted to NICU Weight (g) Sex Living Outcome Pediatric Complications Fetus ID Race Codes Race Delivery Type 3316.66 4704 M Full Term 4827 Primary Jaime Calculation Initial Jaime Date Initial Exam Date Initial Exam Provider Initial Ultrasound Date Last Menstrual Period Date Ultra Sound Weeks Gestation 0 Eighteen To Twenty Week Jaime Update Ultra Sound Date Fundal Height At Umbil Quickening Date Ultra Sound Latest Weeks Gestation Final Jaime Confirmed By Final Jaime Confirmed Date Final Jaime Date Ultra Sound Latest Days Gestation 0 0 Menstrual History Last Menstrual Date Menses Monthly On Bcp Conception Prior Menses Frequency Hcg Plus Date Menarche Onset Age Delivery Information Delivery Date Delivery Type Labor Anesthesia Weeks Gestation Incision Type Labor Labor Length Hrs Delivered By Post Complications Tubal Sterilization Discharge Date Comments 9 38.1 GDM, GHTN, SHOULDER DYSTOCIA X2/ NON REASSURIN G HEART TONES Discharge Information Feeding Method Contraceptive Method Maternal HG B and HCT Levels Ob Episode Information Episode Created Date Number of Fetuses Patient Bloodtype Patient rh Status Prepregnancy Weight lbs Domestic Partner Domestic Partner Phone Father Name Pathology Laboratory Director Status 10/30/19 22 1 A Positive 152 CLOSED Fetus Data First Name Last Name Admitted to NICU Weight (g) Sex Living Outcome Pediatric Complications Fetus ID Race Codes Race Delivery Type 3260.19 25 M true Full Term 31862 Repeat Problems Problem Notes CF/SMA/Fragile X completed 2 019GC/CHL/TRICH NEG Problem Name Start Date End Date Resolution Snomed Code Not e Advanced maternal age 011703559 Deliveries by 04 to repeat Asthma [id number] rescue inh aler less than once per week Past history of gestational diabetes mellitus 600221196 normal HgA1C, normal screen time, was diet controlled. 1hr GTT WNL COVID-19 [id number] around the time conception, asa Jaime Calculation Initial Jaime Date Initial Exam Date Initial Exam Provider Initial Ultrasound Date Last Menstrual Period Date Ultra Sound Weeks Gestation 05/10/2022 10/29/2021 10/02/2021 08/03/2021 8 Eighteen To Twenty Week Jaime Update Ultra Sound Date Fundal Height At Umbil Quickening Date Ultra Sound Latest Weeks Gestation Final Jaime Confirmed By Final Jaime Confirmed Date Final Jaime Date Ultra Sound Latest Days Gestation 0 [email or web address] 2022 05/08/20 22 0 Pre-dayan Flowsheet Flowsheet Date 10/29/2021 Giordano Score Blood Edema Fundus Height Fundus Units Glucose Ketones Leukocytes Nitrite Labor Signs Protein Cervic Dilation Cervic Effacement Cervic Station Type Weight in lbs Pre/Post Dialysis Refused Weight 158.692993045039 BP Diastolic BP Location Tested BP Systolic BP Type 75 L arm 115 sitting Fetus Heart Rate Present Fetus Movement Comments this patient is a 41-year-ol d 5 para 400 for at 12 weeks gestation who presents for initial care. She has no complaints today. She has a history of COVID during this . It was very early in the . She is taking baby aspirin. She has a history of gestational diabetes. Her hemoglobin A1c is normal and we should consider normal diabetes screening. She has asthma and has noticed increasing shortness of breath in this . We will start a an inhaled steroid. She will start on Advair disc. We reviewed care in detail. She will begin routine care. She is having her 5th boy Flowsheet Date 11/19/2021 Giordano Score Blood Edema Fundus Height Fundus Units Glucose Ketones Leukocytes Nitrite Labor Signs Protein Cervic Dilation Cervic Effacement Cervic Station neg trace none trace Type Weight in lbs Pre/Post Dialysis Refused Weight 161.223383495835 BP Diastolic BP Location Tested BP Systolic BP Type 73 111 Fetus Heart Rate Present A 145 Fetus Movement A Yes Comments Doing well. Did not get adva ir as was $375. Using her rescue inhaler less than once per week. Just feels like she has SOB sometimes, but not wheezy. Anatomy US next visit. Flowsheet Date 12/24/2021 Giordano Score Blood Edema Fundus Height Fundus Units Glucose Ketones Leukocytes Nitrite Labor Signs Protein Cervic Dilation Cervic Effacement Cervic Station Type Weight in lbs Pre/Post Dialysis Refused BP Diastolic BP Location Tested BP Systolic BP Type Fetus Heart Rate Present Fetus Movement Comments Flowsheet Date 12/24/2021 Giordano Score Blood Edema Fundus Height Fundus Units Glucose Ketones Leukocytes Nitrite Labor Signs Protein Cervic Dilation Cervic Effacement Cervic Station 20 Type Weight in lbs Pre/Post Dialysis Refused Weight 161.358455806720 BP Diastolic BP Location Tested BP Systolic BP Type 68 R arm 110 sitting Fetus Heart Rate Present A 144 Fetus Movement Comments long acting inhaled steroid for asthma and allergies Flowsheet Date 01/21/2022 Giordano Score Blood Edema Fundus Height Fundus Units Glucose Ketones Leukocytes Nitrite Labor Signs Protein Cervic Dilation Cervic Effacement Cervic Station 24 Type Weight in lbs Pre/Post Dialysis Refused Weight 164.54863201745 BP Diastolic BP Location Tested BP Systolic BP Type 76 R arm 117 sitting Fetus Heart Rate Present A 153 Fetus Movement Comments reviewed blood sugars - they are good. knee pain, growth US due Flowsheet Date 01/21/2022 Giordano Score Blood Edema Fundus Height Fundus Units Glucose Ketones Leukocytes Nitrite Labor Signs Protein Cervic Dilation Cervic Effacement Cervic Station Type Weight in lbs Pre/Post Dialysis Refused BP Diastolic BP Location Tested BP Systolic BP Type Fetus Heart Rate Present Fetus Movement Comments Flowsheet Date 02/18/2022 Giordano Score Blood Edema Fundus Height Fundus Units Glucose Ketones Leukocytes Nitrite Labor Signs Protein Cervic Dilation Cervic Effacement Cervic Station Type Weight in lbs Pre/Post Dialysis Refused BP Diastolic BP Location Tested BP Systolic BP Type Fetus Heart Rate Present Fetus Movement Comments Flowsheet Date 02/18/2022 Giordano Score Blood Edema Fundus Height Fundus Units Glucose Ketones Leukocytes Nitrite Labor Signs Protein Cervic Dilation Cervic Effacement Cervic Station 28 Type Weight in lbs Pre/Post Dialysis Refused Weight 166.901825200050 BP Diastolic BP Location Tested BP Systolic BP Type 65 R arm 116 sitting Fetus Heart Rate Present A 145 Fetus Movement Comments No complaints, has not been looking at blood sugars, diabetes screen today. Flowsheet Date 03/04/2022 Giordano Score Blood Edema Fundus Height Fundus Units Glucose Ketones Leukocytes Nitrite Labor Signs Protein Cervic Dilation Cervic Effacement Cervic Station 30 Type Weight in lbs Pre/Post Dialysis Refused Weight 169.292891535530 BP Diastolic BP Location Tested BP Systolic BP Type 62 R arm 101 sitting Fetus Heart Rate Present A 134 Fetus Movement A Yes Comments no complaints. Good growth, good movement. Flowsheet Date 03/20/2022 Giordano Score Blood Edema Fundus Height Fundus Units Glucose Ketones Leukocytes Nitrite Labor Signs Protein Cervic Dilation Cervic Effacement Cervic Station Type Weight in lbs Pre/Post Dialysis Refused BP Diastolic BP Location Tested BP Systolic BP Type Fetus Heart Rate Present Fetus Movement Comments Flowsheet Date 03/20/2022 Giordano Score Blood Edema Fundus Height Fundus Units Glucose Ketones Leukocytes Nitrite Labor Signs Protein Cervic Dilation Cervic Effacement Cervic Station 32 Type Weight in lbs Pre/Post Dialysis Refused Weight 169.841517870397 BP Diastolic BP Location Tested BP Systolic BP Type 59 R arm 101 sitting 66 L arm 102 sitting Fetus Heart Rate Present A 145 Fetus Movement Comments to schedule Octobe r 3rd Flowsheet Date 2022 Giordano Score Blood Edema Fundus Height Fundus Units Glucose Ketones Leukocytes Nitrite Labor Signs Protein Cervic Dilation Cervic Effacement Cervic Station 36 Type Weight in lbs Pre/Post Dialysis Refused Weight 173.658018557213 BP Diastolic BP Location Tested BP Systolic BP Type 69 R arm 114 sitting Fetus Heart Rate Present A 140 Fetus Movement A Yes Comments hard time breathing, having to catch her breath, increase in d/c that is clear and at times a faint yellow. to observe shortness of breath, to monitor, given precautions to come in if worsening or more intense. Flowsheet Date 04/15/2022 Giordano Score Blood Edema Fundus Height Fundus Units Glucose Ketones Leukocytes Nitrite Labor Signs Protein Cervic Dilation Cervic Effacement Cervic Station Type Weight in lbs Pre/Post Dialysis Refused BP Diastolic BP Location Tested BP Systolic BP Type Fetus Heart Rate Present Fetus Movement Comments Flowsheet Date 04/15/2022 Giordano Score Blood Edema Fundus Height Fundus Units Glucose Ketones Leukocytes Nitrite Labor Signs Protein Cervic Dilation Cervic Effacement Cervic Station Type Weight in lbs Pre/Post Dialysis Refused Weight 175.934002325353 BP Diastolic BP Location Tested BP Systolic BP Type 69 R arm 117 sitting Fetus Heart Rate Present A 145 Fetus Movement Comments To discontinue aspirin 2 wee ks prior to , no complaints, Flowsheet Date 04/24/2022 Giordano Score Blood Edema Fundus Height Fundus Units Glucose Ketones Leukocytes Nitrite Labor Signs Protein Cervic Dilation Cervic Effacement Cervic Station 37 Type Weight in lbs Pre/Post Dialysis Refused Weight 176.969452796658 BP Diastolic BP Location Tested BP Systolic BP Type 67 R arm 112 sitting Fetus Heart Rate Present A 145 Fetus Movement Comments mild deceleration of t he heart rate into the 110s, to perform some extended monitoring and BPP. Flowsheet Date 04/24/2022 Giordano Score Blood Edema Fundus Height Fundus Units Glucose Ketones Leukocytes Nitrite Labor Signs Protein Cervic Dilation Cervic Effacement Cervic Station Type Weight in lbs Pre/Post Dialysis Refused BP Diastolic BP Location Tested BP Systolic BP Type Fetus Heart Rate Present Fetus Movement Comments Flowsheet Date 05/01/2022 Giordano Score Blood Edema Fundus Height Fundus Units Glucose Ketones Leukocytes Nitrite Labor Signs Protein Cervic Dilation Cervic Effacement Cervic Station Type Weight in lbs Pre/Post Dialysis Refused Weight 165.943633731679 BP Diastolic BP Location Tested BP Systolic BP Type 71 R arm 118 sitting Fetus Heart Rate Present Fetus Movement Comments Flowsheet Date 05/22/2022 Giordano Score Blood Edema Fundus Height Fundus Units Glucose Ketones Leukocytes Nitrite Labor Signs Protein Cervic Dilation Cervic Effacement Cervic Station Type Weight in lbs Pre/Post Dialysis Refused Weight 161.344992211824 BP Diastolic BP Location Tested BP Systolic BP Type 61 R arm 110 sitting Fetus Heart Rate Present Fetus Movement Comments Menstrual History Last Menstrual Date Menses Monthly On Bcp Conception Prior Menses Frequency Hcg Plus Date Menarche Onset Age 0108/03/2021 Genetic Screening And Infection History Question Response Note Mental Retardation/Autism false Patient's Age Will Be 35 Years Or Older At Estim ated Date of Delivery false Thalassemia (Latvian, Hong Konger, Mediterranean, Or Background): MCV < 80 false Neural Tube Defect (Meningomyelocele, Spina Bifi da, Or Anencephaly) false Congenital Heart Defect false Down Syndrome false David-Sachs (eg, Mormonism, Cajun, Polish-Manor) f alse Nanette Disease false Sickle Cell Disease Or Trait () false Hemophilia Or Other Blood Disorders false Muscular Dystrophy false Cystic Fibrosis false Shaila's Chorea false Intellectual Disability/Autism false If Yes, Was Person Tested For Fragile X? false Other Inherited Genetic Or Chromosomal Disorder false Maternal Metabolic Disorder (eg, Type 1 Diabetes , PKU) false Patient Or Baby's Father Had A Child With Defects Not Listed Above false Recurrent Loss, Or A Stillbirth false Medications (including Suppl ements, Vitamins, Herbs, OTC Drugs), Illicit/Recreational Drugs, Alcohol false If Yes, Agent(s) And Strength/Dosage false Any Other Genetic History false Live With Someone With TB Or Exposed To TB false Patient Or Partner Has History Of Genital Herpes false Rash Or Viral Illness Since Last Menstrual Perio d false History Of STD, Gonorrhea, Chlamydia, HPV, Syphi lis false Other Infection History false History of HIV false History of Hepatitis false Prior GBS-infected child false Hemoglobinopathy Or Carrier false Other Structural Defect false Recent Travel History Outside of Country false Delivery Information Delivery Date Delivery Type Labor Anesthesia Weeks Gestation Incision Type Labor Labor Length Hrs Delivered By Post Complications Tubal Sterilization Discharge Date Comments 2 None [facility] 38 Low Transvers e false Jonh Greenberg MD AMA & Rpt C/S Discharge Information Feeding Method Contraceptive Method Maternal HG B and HCT Levels Breast
--- OUTSIDE RECORDS SUMMARY | 2024-11-29 09:04 | XMS_ITS | Encounter Summary ---
Author Organization [facility] Address [facility] [place] [address] Care Team Providers Care Hospitalist Nocturnist Physician Name Role Phone Mylene Dumont PA-C Primary Care Provider Encounter Details Date Type Department Care Team (Late st Contact Info) Description 03/24/2024 [employer] Message Enc [facility] Medical Group Family & Internal Medicine [address] [address] Mylene Dumont PA-C [address] [place] [phone] Lab results Social History Tobacco Use Types Packs/Day Years Used Date Smoking Tobacco: Former Cigarettes 2017 Smokeless Tobacco: Never Alcohol Use Standard Drinks/Week Comments Yes 16.7 (1 standard drink = 0.6 oz pure alcohol) PHQ-2 Answer Date Recorded Patient Health Questionnaire-2 Score 0 03/28/2024 Comments No Sex and Gender Information Value Date Recorded Sex Assigned at Not on file Legal Sex Female 6:32 PM CDT Gender Identity Not on file Sexual Orientation Not on file documented as of this encounter Progress Notes * Mylene Dumont PA-C - 03/24/2024 3:28 PM CDT No, though symptoms are not typically associated with lipid panel or with a slight decrease in GFR.Most people are asymptomatic with the slight abnormalities. I would recommend the addition of iron saturation panel, ferritin, B12 and folate to make sure there is no deficiencies contributing to hersymptoms. Thank you! * Cele Estes MA - 03/24/2024 2:28 PM CDT Please advise documented in this encounter Plan of Treatment Not on file documented as of this encounter Visit Diagnoses Not on filedocumented in this encounter Additional Health Concerns Assessment Noted Time PHQ-9 Depression Total Score: 7 01/12/20 24 7:25 AM CDT documented as of this encounter Care Teams Hospitalist Nocturnist Physician Relationship Specialty Start Date End Date Mylene Dumont PA-C PCP - General PHYSICIAN BUDGET TECHNICIAN 04/29/23 10/05/24 documented as of this encounter
--- OUTSIDE RECORDS SUMMARY | 2024-11-29 09:04 | XMS_ITS | Encounter Summary ---
Author Organization [facility] Address [facility] [place] [address] Care Team Providers Care Salon/Spa Manager Name Role Phone Mylene Dumont PA-C Primary Care Provider [phone] Encounter Details Date Type Department Care Team (Late st Contact Info) Description 05/01/2023 [employer] Message Enc [facility] Medical Group Family & Internal Medicine [facility] [address] [place] [address] Addis Sanders, [facility] [address] [facility] [address] [place] [address] Blood Work Social History Tobacco Use Types Packs/Day Years Used Date Smoking Tobacco: Former Cigarettes 1 2017 Smokeless Tobacco: Never Alcohol Use Standard Drinks/Week Comments Yes 1.7 (1 standard drink = 0.6 oz p ure alcohol) 1-3 weekly PHQ-2 Answer Date Recorded Patient Health Questionnaire-2 Score 4 10/10/2022 Comments No Sex and Gender Information Value Date Recorded Sex Assigned at Not on file Legal Sex Female 6:32 PM CDT Gender Identity Not on file Sexual Orientation Not on file documented as of this encounter Plan of Treatment Not on file documented as of this encounter Visit Diagnoses Not on filedocumented in this encounter Additional Health Concerns Infection Onset Date Last Indicated Resolved Time COVID-19 Rule Out 09/15/2023 09/15/2023 09/15/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
== END 2024-11-29 08:41 | disposition home or self-care (01) ==
DX: Z12.31 Encounter for screening mammogram for malignant neoplasm of breast (principal)
CPT/HCPCS: 77063; 77067